=== PATIENT | male | born 1935 | race Caucasian/White ===

== ENCOUNTER 2024-02-29 22:44 | Inpatient (IN) | payer MEDICARE, OTHER, SELFPAY ==
--- NOTE | 2024-02-29 | ECG_ITS ---
Test Reason : FALL / AMS Blood Pressure : / mmHG Vent. Rate : 052 BPM Atrial Rate : 000 BPM P-R Int : 000 ms QRS Dur : 116 ms QT Int : 488 ms P-R-T Axes : 000 034 069 degrees QTc Int : 453 ms Atrial fibrillation with slow ventricular response Incomplete left bundle branch block Abnormal ECG No previous ECGs available Referred By: Generic ED Physician Electronically Signed By:LORRAINE HERNÁNDEZ MD
--- NOTE | ~2024-02-29 | XR_ITS ---
EXAMINATION: XR CHEST CLINICAL INFORMATION: Fall. COMPARISON: None available. TECHNIQUE: Frontal view of the chest was obtained. FINDINGS: The cardiomediastinal silhouette is within normal limits. There is no focal lung consolidation or pleural effusion. There is a moderate hiatal hernia. The bony structures are osteopenic. The soft tissues are unremarkable. XR/XR chest 1V IMPRESSION: No acute cardiopulmonary process.
--- NOTE | ~2024-02-29 | US_ITS ---
EXAMINATION: US VENOUS ULTRASOUND WITH DOPPLER LOWER EXTREMITY, BILATERAL CLINICAL INFORMATION: Evaluate for DVT COMPARISON: None available. TECHNIQUE: Ultrasound of the deep veins is performed from the hip to the calf with compression sonography and color and pulse Doppler assessment. Spectral analysis with color-flow imaging is performed. FINDINGS: RIGHT: There is normal venous compression and respiratory variation and augmented flow. The visualized common femoral vein, superficial femoral vein, profunda femoral vein, popliteal vein, and the trifurcation region shows no evidence of deep venous thrombosis. There is no significant popliteal fossa cyst. Within the right groin is a morphologically benign-appearing though mildly prominent lymph node noted measuring 1.3 cm in short axis soft tissue edema noted along the right lower extremity. LEFT: There is normal venous compression and respiratory variation and augmented flow. The visualized common femoral vein, superficial femoral vein, profunda femoral vein, popliteal vein, and the trifurcation region shows no evidence of deep venous thrombosis. There is no significant popliteal fossa cyst. If the patient's symptoms persist, followup ultrasound in 5 days 7 days might be of value to exclude proximal propagation from a non-visualized calf vein. US/US venous duplex LE BI IMPRESSION: 1. No DVT demonstrated in the bilateral lower extremity. 2. Within the right groin is a morphologically benign-appearing though mildly prominent lymph node measuring 1.3 cm in short axis. Soft tissue edema noted along the right lower extremity.
--- NOTE | ~2024-02-29 | CT_ITS ---
EXAMINATION: CT HEAD WITHOUT CONTRAST CLINICAL INFORMATION: Fall. Patient is on blood thinners. COMPARISON: None available. TECHNIQUE: Contiguous axial imaging was performed from the skull base to vertex without intravenous administration of contrast. This CT examination was performed using dose optimization techniques as appropriate, variously including the following: *Automated exposure control *Adjustment of mA and/or kV according to patient size (this includes techniques or standardized protocols for targeted exams where dose is matched to indication/reason for exam; i.e. extremities or head) *Use of iterative reconstruction technique DLP: 718 mGy-cm FINDINGS: There is cerebral volume loss with prominence of the lateral and the third ventricles. The cortical sulci are widened appropriately. The fourth ventricle and basal cisterns are normally outlined. There is moderate bilateral periventricular and central white matter diminished attenuation. 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 There is also an old lacunar infarct of the left basal ganglia. There is an old left parietal infarct. There is no acute territorial defect, hemorrhage or midline shift. The extra-axial spaces are unremarkable. Calvarium/scalp: Intact. Maxillofacial sinuses and mastoids: Clear as visualized. CT/CT head/brain wo IV con IMPRESSION: 1. No acute intracranial pathology. 2. 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 3. Multiple old infarcts.
[2024-02-29 22:52] VITALS: BP 104/72; BP 155/60; PULSE 51; PULSE 57; RESP 26; TEMP 36.7; O2SAT 94; O2SAT 95; BMI 25.3
[2024-02-29 23:37] LABS: Basophils Absolute Auto 0.1 X10*3/uL (0.0-0.2); Basophils Percent Auto 0.2 % (0-2); Hematocrit 38.6 % (42.0-52.0); Hemoglobin 13.4 g/dl (14.0-18.0); Imm Gran Abs Auto 0.15 X10*3/uL (0.00-0.03); Imm Gran Pct Auto 0.6 % (0.0-0.4); Lymphocytes Absolute Auto 0.3 X10*3/uL (1.2-4.9); Lymphocytes Percent Auto 1.3 % (20-40); MANUAL DIFF FLAG SCAN; Mean Corpuscular HGB Conc 34.7 g/dl (31.0-36.0); Mean Corpuscular Hemoglobin 29.5 pg (27.0-33.0); Mean Platelet Volume 9.1 fL (9.4-12.4); Monocytes Percent Auto 4.1 % (2-11); NRBC Pct Auto 0.1 /100WBC (0.0-0.2); Neutrophils Percent Auto 93.8 % (45-73); Platelet Count 251 X10*3/uL (160-400); Red Blood Count 4.54 X10*6/uL (4.60-5.80); Red Cell Distribution Width 15.5 % (11.0-16.0); SCAN SMEAR FLAG 1; White Blood Count 25.5 X10*3/uL (4.8-10.8)
[2024-02-29 23:46] LABS: INTERNATIONAL NORM RATIO 1.8 (0.9-1.1); Prothrombin Time 22.2 SEC (11.1-13.3)
[2024-02-29 23:48] LABS: Partial Thromboplastin Time 29.6 SEC (26.0-36.8)
[2024-02-29 23:54] LABS: SLIDE REVIEW VERIFIED
[2024-03-01] VITALS (18 sets, daily range): BP systolic 77–117; BP diastolic 48–90; PULSE 54–76; RESP 16–22; TEMP 35.1–36.7; O2SAT 94–99
[2024-03-01] LABS: Alanine Aminotransferase 36 U/L (0-40); Albumin Level 2.7 g/dL (3.5-5.0); Alkaline Phosphatase 91 U/L (39-117); Anion Gap 22 (12-20); Aspartate Amino Transferase 120 U/L (5-37); Bilirubin Direct 0.4 mg/dL (0.0-0.5); Bilirubin Total 0.8 mg/dL (0.0-1.0); Blood Urea Nitrogen 70 mg/dL (9-16); Calcium 8.8 mg/dL (8.4-10.2); Carbon Dioxide 16 mmol/L (22-29); Chloride 101 mmol/L (96-108); Creatinine Clr Calc Pharmacy 17.3; Estimated Glomerular Filt Rate 21; Glucose Random 102 mg/dL (60-115); Potassium 6.5 mmol/L (3.3-5.1); Sodium 132 mmol/L (135-145); Total Protein 6.1 g/dL (6.5-8.0); Troponin-I High Sensitivity 426.6 ng/L (<3.5-35.0)
[2024-03-01 00:01] LABS: Lactic Acid 2.7 mmol/L (0.5-2.0)
[2024-03-01 00:53] LABS: Potassium 6.1 mmol/L (3.3-5.1)
[2024-03-01 01:09] LABS: OBS Int Ctl Valid YES; OBS1 POSITIVE (NEGATIVE)
--- NOTE | 2024-03-01 01:18 | PC.NURSE ---
Daughter Trisha would like to be the primary contact for all cares.
--- NOTE | 2024-03-01 01:19 | ED_ITS ---
HPI - General Adult General Chief complaint: Wound/Laceration Stated complaint: severe bilateral leg cellulitis, ulcers, afib Time Seen by Provider: 03/01/24 00:19 Source: patient, family (Daughter) and EMS Mode of arrival: EMS Limitations: no limitations History of Present Illness ED Provider: DR. Gonzales HPI narrative: 89-year-old male brought in by ambulance for evaluation of multiple concerns by his daughter. This is 89-year-old pleasant male lives home with his mostly independently, daughter noticed that lately he has been falling frequently yesterday patient was found on the ground for about 5 hours and daughter helped him to get up and felt that he did not need to be medically evaluated then, patient was complaining to his daughter that the swelling of right leg is getting worse. Patient with history of atrial fibrillation on Eliquis for anticoagulation, as per daughter known to have bradycardia patient was advised to have pacemaker in the past but was never placed. Patient is hard hearing but able to answer all my questions appropriately in the ED. patient has no complaint No headache, no neck pain. Related Data Allergies Allergy/AdvReac Type Severity Reaction Status Date / Time No Known Allergies Allergy Verified 02/29/24 22:58 Review of Systems 2 Review of Systems: All other systems are reviewed and are negative Constitutional: Reports as per HPI and Reports no additional constitutional complaints Eyes: Reports as per HPI and Reports no additional eye complaints Reports system reviewed and no additional complaints, except as documented Cardiovascular: Reports as per HPI and Reports no additional cardiovascular complaints Respiratory: Reports as per HPI and Reports no additional respiratory complaints Gastrointestinal: Reports as per HPI and Reports no additional gastrointestinal complaints Genitourinary: Reports no additional female genitourinary complaints Musculoskeletal: Reports no additional musculoskeletal complaints Skin/Breast: Reports system reviewed and no additional complaints, except as docu Psychiatric: Reports no additional psychiatric complaints Endocrine: Reports no additional endocrine complaints Hematologic/Lymphatic: Reports no additional hematologic/lymphatic complaints Allergic/Immunologic: Reports no additional allergic/immunologic complaints Reports system reviewed and no additional complaints, except as documented and Reports Abnormal speech present PMFSH Social History Social History Advance Directives: No (pts daughter was unsure and states it may be on file with pts spouse) Advance Directives Information Provided: No Physical Exam ED Vital Signs: Vital Signs - 24 hr 02/29/24 22:52 08/11/24 02:24 Temperature 98.0 F Pulse Rate 57 56 Respiratory Rate 26 H 21 H Blood Pressure 104/72 117/55 L Pulse Oximetry 94 Oxygen Delivery Method Room Air Room Air BMI result Body Mass Index 25.3 Vital signs have been reviewed and appear to be correct. Blood pressure elevated. Heart rate normal. Respiratory rate normal. Temperature normal. Oxygen saturation normal. Appearance: Alert. Oriented X3. No acute distress. Head: Normal external exam. Normocephalic. Small right hematoma to the right side of the forehead, No Trevino signs noted. No raccoon eyes noted Eyes: PERRLA. EOMI. Conjunctiva and sclera normal. Eyelids normal. ENT: TM's Normal. Pharynx normal. Uvula midline. Moist mucous membranes. No trismus noted. No drooling noted. No muffled voice noted. Neck: Normal inspection. Neck supple. FROM. No adenopathy. Thyroid Normal. No meningeal signs. No neck mass noted. CVS: Normal heart rate and rhythm. Heart sound normal. No murmurs noted. Pulses normal throughout. Respiratory: No respiratory distress. Painless inspiration. Breath sounds normal. No wheezes/rales/rhonchi noted. Chest nontender. No accessory muscle usage noted or decreased air movement noted. Abdomen: Soft and nontender. Bowel sounds normal in all 4 quadrants. No distention noted. No organomegaly noted. No visible injury noted. Rectal: Black tarry stool guaiac positive. Back: No CVA tenderness. Full range of motion noted. Skin: Skin warm and dry. Normal skin color. Normal skin turgor. No rashes/lesions/lacerations noted. Extremities: Bilateral lower extremities edema right more than left, creeping serosanguineous on the left side. Redness on hotness on the right side. Neuro: Oriented X 3. Cranial nerve exam: II-XII are grossly intact No motor deficit. No sensory deficit. Reflexes normal. Course Reevaluation(s) Reevaluation #1: 89-year-old male with multiple findings. 1. On Eliquis with right forehead hematoma, GCS 15, head CT is unremarkable for intracranial bleed. 2. As reported by daughter multiple falls, found on the floor yesterday for about 5 hours as mild rhabdomyolysis with APURVA and hyperkalemia with no EKG changes. * IV fluid hydration. * 40 catheter placement with 950 mL urine was drained. * start on sodium bicarb drip, calcium gluconate, insulin/D50 for hyperkalemia. * discussed with renal Dr. Eason. 3. Right lower extremity cellulitis with severe sepsis no septic shock, IV fluids and IV antibiotic. 4. Elevated troponin likely secondary to elevated CPK, repeat troponin has trended down 5. 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 6. Melena, stable H&H. PPI IV. 7. Lactic acidosis is improving with fluids. Time: 01:38 Medications Administered Generic Name Dose Route Start Last Admin Trade Name Freq PRN Reason Stop Dose Admin Sodium Bicarbonate 150 meq/ 1,000 mls @ 100 mls/hr 03/01/24 00:45 03/01/24 01:24 Dextrose IV 100 mls/hr .Q10H MARK Administration Vancomycin HCl 2,000 mg in 500 mls @ 250 mls/hr 03/01/24 01:15 03/01/24 02:17 Vancomycin/Ns IV 03/01/24 03:14 250 mls/hr ONCE ONE Administration Discontinued Medications Generic Name Dose Route Start Last Admin Trade Name Freq PRN Reason Stop Dose Admin Sodium Chloride 1,000 mls @ 999 mls/hr 03/01/24 00:31 03/01/24 01:39 Ns IV 03/01/24 01:31 999 mls/hr .Q1H1M ONE Administration Calcium Gluconate 2 gm in 100 mls @ 50 mls/hr 03/01/24 00:31 03/01/24 01:25 Calcium Gluconate IV 03/01/24 02:30 50 mls/hr ONCE ONE Administration Dextrose 250 mls @ 750 mls/hr 03/01/24 00:58 03/01/24 01:52 D10 IV 03/01/24 01:17 Infused Q15M ONE Infusion Vancomycin HCl 1,500 mg/ 500 mls @ 333.333 mls/hr 03/01/24 01:00 03/01/24 01:37 Sodium Chloride IV 03/01/24 02:29 Not Given ONCE ONE Insulin Human Regular 5 unit 03/01/24 00:34 03/01/24 01:33 Insulin Regular, Human 100 Unit/Ml 10 Ml Vial IVPUSH 03/01/24 00:35 5 unit ONCE ONE Administration Pantoprazole Sodium 40 mg 03/01/24 01:37 03/01/24 02:13 Pantoprazole Sodium 40 Mg/10 Ml Vial IVPUSH 03/01/24 01:38 40 mg ONCE ONE Administration Medical Decision Making Differential Diagnosis Differential Diagnoses: The differential diagnosis associated with the presentation includes (Rhabdomyolysis, hyperkalemia, APURVA, electrolyte derangement, sepsis, GI bleed, severe anemia, ACS, closed head injury, cervical spine injury, cellulitis of right lower extremity.) Admission/Observation Consideration of admission/observation: Escalation of care including admission/observation considered Consult Healthcare Provider Management of the patient was discussed with: Hospitalist (Dr. Thompson) and [facility] Splitter (Dr. Fernando) Lab Data MDM Lab Attestation statement: I reviewed the patient's lab results. 02/29/24 23:27 03/01/24 02:39 Labs: Lab Results 02/29/24 03/01/24 03/01/24 Range/Units 23:27 00:29 01:06 WBC 25.5 H (4.8-10.8) X10*3/uL RBC 4.54 L (4.60-5.80) X10*6/uL Hgb 13.4 L (14.0-18.0) g/dl Hct 38.6 L (42.0-52.0) % MCV 85.0 (80.0-98.0) fL MCH 29.5 (27.0-33.0) pg MCHC 34.7 (31.0-36.0) g/dl RDW 15.5 (11.0-16.0) % Plt Count 251 (160-400) X10*3/uL MPV 9.1 L (9.4-12.4) fL Immature Gran % (Auto) 0.6 H (0.0-0.4) % Neut % (Auto) 93.8 H (45-73) % Lymph % (Auto) 1.3 L (20-40) % [place] % (Auto) 4.1 (2-11) % Eos % (Auto) 0.0 (0-4) % Baso % (Auto) 0.2 (0-2) % Lymph # (Auto) 0.3 L (1.2-4.9) X10*3/uL [place] # (Auto) 1.0 (0.1-1.2) X10*3/uL Eos # (Auto) 0.0 (0.0-0.4) X10*3/uL Baso # (Auto) 0.1 (0.0-0.2) X10*3/uL Abs Immat Gran (auto) 0.15 H (0.00-0.03) X10*3/uL Absolute Neuts (auto) 24.0 H (2.0-8.3) x10*3/uL Absolute Nucleated RBC 0.020 H (0.0-0.012) X10*3/uL Nucleated RBC % (auto) 0.1 (0.0-0.2) /100WBC Smear Tech's Comments VERIFIED PT 22.2 H (11.1-13.3) SEC INR 1.8 H (0.9-1.1) APTT 29.6 (26.0-36.8) SEC Sodium 132 L (135-145) mmol/L Potassium 6.5 H* 6.1 H* (3.3-5.1) mmol/L Chloride 101 (96-108) mmol/L Carbon Dioxide 16 L (22-29) mmol/L Anion Gap 22 H (12-20) BUN 70 H (9-16) mg/dL Creatinine 2.88 H (0.5-1.4) mg/dL Estim Creat Clear Calc 17.3 Estimated GFR 21 POC Glucose (60-115) mg/dL Random Glucose 102 (60-115) mg/dL Lactic Acid 2.7 H* (0.5-2.0) mmol/L Lactic Acid F/U @ 2Hr (0.5-2.0) mmol/L Calcium 8.8 (8.4-10.2) mg/dL Magnesium (1.6-2.6) mg/dL Total Bilirubin 0.8 (0.0-1.0) mg/dL Direct Bilirubin 0.4 (0.0-0.5) mg/dL AST 120 H (5-37) U/L ALT 36 (0-40) U/L Alkaline Phosphatase 91 (39-117) U/L Total Creatine Kinase 2029 H (38-174) U/L Troponin I High Sens 426.6 H* (<3.5-35.0) ng/L Total Protein 6.1 L (6.5-8.0) g/dL Albumin 2.7 L (3.5-5.0) g/dL Urine Color Urine Appearance Urine pH (5.0-9.0) Ur Specific [place] (1.005-1.025) Urine Protein (Neg-Trace) mg/dL Urine Glucose (UA) (Negative) mg/dL Urine Ketones (Negative) mg/dL Urine Blood (Negative) Urine Nitrite (Negative) Ur Leukocyte Esterase (Negative) Urine RBC (0-2) /HPF Urine WBC (0-5) /HPF Ur Squamous Epith Cells (0-2) /HPF Urine Bacteria (None Seen) Hyaline Casts (0-2) /LPF Stool Occult Blood POSITIVE (NEGATIVE) 03/01/24 03/01/24 03/01/24 Range/Units 01:31 02:08 02:39 WBC (4.8-10.8) X10*3/uL RBC (4.60-5.80) X10*6/uL Hgb (14.0-18.0) g/dl Hct (42.0-52.0) % MCV (80.0-98.0) fL MCH (27.0-33.0) pg MCHC (31.0-36.0) g/dl RDW (11.0-16.0) % Plt Count (160-400) X10*3/uL MPV (9.4-12.4) fL Immature Gran % (Auto) (0.0-0.4) % Neut % (Auto) (45-73) % Lymph % (Auto) (20-40) % [place] % (Auto) (2-11) % Eos % (Auto) (0-4) % Baso % (Auto) (0-2) % Lymph # (Auto) (1.2-4.9) X10*3/uL [place] # (Auto) (0.1-1.2) X10*3/uL Eos # (Auto) (0.0-0.4) X10*3/uL Baso # (Auto) (0.0-0.2) X10*3/uL Abs Immat Gran (auto) (0.00-0.03) X10*3/uL Absolute Neuts (auto) (2.0-8.3) x10*3/uL Absolute Nucleated RBC (0.0-0.012) X10*3/uL Nucleated RBC % (auto) (0.0-0.2) /100WBC Smear Tech's Comments PT (11.1-13.3) SEC INR (0.9-1.1) APTT (26.0-36.8) SEC Sodium 134 L (135-145) mmol/L Potassium 6.1 H* (3.3-5.1) mmol/L Chloride 103 (96-108) mmol/L Carbon Dioxide 19 L (22-29) mmol/L Anion Gap 18 (12-20) BUN 75 H (9-16) mg/dL Creatinine 2.62 H (0.5-1.4) mg/dL Estim Creat Clear Calc 19.1 Estimated GFR 23 POC Glucose 83 (60-115) mg/dL Random Glucose 76 (60-115) mg/dL Lactic Acid (0.5-2.0) mmol/L Lactic Acid F/U @ 2Hr 2.2 H* (0.5-2.0) mmol/L Calcium 8.7 (8.4-10.2) mg/dL Magnesium 2.3 (1.6-2.6) mg/dL Total Bilirubin (0.0-1.0) mg/dL Direct Bilirubin (0.0-0.5) mg/dL AST (5-37) U/L ALT (0-40) U/L Alkaline Phosphatase (39-117) U/L Total Creatine Kinase (38-174) U/L Troponin I High Sens 288.7 H* (<3.5-35.0) ng/L Total Protein (6.5-8.0) g/dL Albumin (3.5-5.0) g/dL Urine Color Yellow Urine Appearance Clear Urine pH 5.0 (5.0-9.0) Ur Specific [place] 1.010 (1.005-1.025) Urine Protein Trace (Neg-Trace) mg/dL Urine Glucose (UA) Negative (Negative) mg/dL Urine Ketones Negative (Negative) mg/dL Urine Blood Large (3+) H (Negative) Urine Nitrite Negative (Negative) Ur Leukocyte Esterase Negative (Negative) Urine RBC 11-20 H (0-2) /HPF Urine WBC 0-5 (0-5) /HPF Ur Squamous Epith Cells 0-2 (0-2) /HPF Urine Bacteria None Seen (None Seen) Hyaline Casts 3-5 (0-2) /LPF Stool Occult Blood (NEGATIVE) Independent Interpretation I performed an independent interpretation of an: Plain X-Ray (Chest:) and CT Scan (Head:) Radiology Impression Discussion of test interpretation with radiology: I have reviewed the radiologist's reading. Critical Care Time Critical Care Time Critical Care Time: Yes Total Critical Care Time: 60 Attestation: The patient was critically ill with a high probability of imminent or life- threatening deterioration. I spent greater than 30 minutes of discontinuous time evaluating the patient, delivering critical care at the bedside, discussing evaluating data with consultants. Critical care time does not include time spent performing separately billable procedures or teaching. Time spent performing critical care was 60 minutes. Discharge Plan Discharge Clinical Impression: Acute hyperkalemia, APURVA (acute kidney injury), Rhabdomyolysis, Melena, Elevated troponin, Cellulitis of right leg, Closed head injury, Acidosis, lactic Patient Disposition: Admitted As Inpatient Print Language: Taiwanese
[2024-03-01] MEDS: Sodium Bicarbonate 8.4% 150 MEQ in Dextrose 5 % 850 ML 100 MEQ IV ×2 (01:24→12:00)
[2024-03-01] MEDS: Calcium Gluconate/NaCl,Iso-Osm 2 GM/100 ML PLAST..BAG IV (01:25)
[2024-03-01] MEDS: Dextrose 10 % 250 ML 750 ML IV (01:32)
[2024-03-01 01:33] LABS: Reflex Lactate? Lactic Acid Added
[2024-03-01] MEDS: Insulin Regular, Human 100 UNIT/ML 10 ML VIAL IVPUSH (01:33)
[2024-03-01] MEDS: 0.9 % Sodium Chloride 1,000 ML 999 ML IV (01:39)
[2024-03-01 01:45] LABS: Glucose, Whole Blood 83 mg/dL (60-115)
[2024-03-01] MEDS: Pantoprazole Sodium 40 MG/10 ML VIAL IVPUSH ×2 (02:13→17:43)
[2024-03-01] MEDS: vancomycin/NS 2,000 MG/500 ML PLAST..BAG 250 MG IV (02:17)
[2024-03-01 02:33] LABS: Appearance Urine Clear; Color Urine Yellow; Glucose Urine UA Negative (Negative); Leukocyte Esterase Urine Negative (Negative); Nitrite Urine Negative (Negative); UMIC TRIGGER UACC YES; Urine Blood Large (3+) (Negative); Urine Ketones Negative (Negative); Urine Protein Trace mg/dL (Neg-Trace)
[2024-03-01 02:34] LABS: ~Lactic Acid-LAB USE ONLY 2.2 mmol/L (0.5-2.0)
[2024-03-01 02:39] LABS: Troponin-I High Sensitivity 288.7 ng/L (<3.5-35.0)
[2024-03-01 02:59] LABS: Bacteria Urine None Seen (None Seen); Squamous Epithelial Cell Urine 0-2 /HPF (0-2); WBC Urine 0-5 /HPF (0-5)
[2024-03-01 03:03] LABS: Anion Gap 18 (12-20); Blood Urea Nitrogen 75 mg/dL (9-16); Calcium 8.7 mg/dL (8.4-10.2); Carbon Dioxide 19 mmol/L (22-29); Chloride 103 mmol/L (96-108); Creatinine Clr Calc Pharmacy 19.1; Estimated Glomerular Filt Rate 23; Glucose Random 76 mg/dL (60-115); Magnesium 2.3 mg/dL (1.6-2.6); Potassium 6.1 mmol/L (3.3-5.1); Sodium 134 mmol/L (135-145)
[2024-03-01 04:12] LABS: Reflex Lactate? 2 Y
[2024-03-01 05:01] LABS: Glucose, Whole Blood 91 mg/dL (60-115)
[2024-03-01 05:25] LABS: ~Lactic Acid-LAB USE ONLY 2.2 mmol/L (0.5-2.0)
--- NOTE | 2024-03-01 06:55 | PC.NURSE ---
Handoff report to Dulce BOOGIE.
[2024-03-01 08:53] LABS: Hematocrit 35.5 % (42.0-52.0); Hemoglobin 12.1 g/dl (14.0-18.0); Mean Corpuscular HGB Conc 34.1 g/dl (31.0-36.0); Mean Corpuscular Hemoglobin 29.6 pg (27.0-33.0); Mean Corpuscular Volume 86.8 fL (80.0-98.0); Mean Platelet Volume 9.1 fL (9.4-12.4); Platelet Count 197 X10*3/uL (160-400); Red Blood Count 4.09 X10*6/uL (4.60-5.80); Red Cell Distribution Width 15.5 % (11.0-16.0); White Blood Count 21.7 X10*3/uL (4.8-10.8)
[2024-03-01 09:09] LABS: Anion Gap 17 (12-20); Blood Urea Nitrogen 73 mg/dL (9-16); Calcium 8.2 mg/dL (8.4-10.2); Carbon Dioxide 21 mmol/L (22-29); Chloride 103 mmol/L (96-108); Creatinine Clr Calc Pharmacy 20.8; Estimated Glomerular Filt Rate 26; Glucose Random 80 mg/dL (60-115); Sodium 136 mmol/L (135-145)
--- NOTE | 2024-03-01 09:17 | PM.EVENT ---
Event Note Date of Service: 03/01/24 Event Note: Patient not seen but case discussed with ER MD. APURVA due to tubular injury. UO Ok. Given IV NaHCO3. K better. Serum creatinine marginally better. No indication for renal replacement.Continue current supportive care for now. Shall see and follow up AM
--- NOTE | 2024-03-01 09:17 | PC.NURSE ---
patient sleeping. awakens to verbal stimuli. states his name, not oriented to place or situation. denies pain. skin pale, cool, dry. rectal temp 95.2, steve hollingsworth initiated and hospitalist aware. afib via tele. continues on bicarb drip per order. h[place]josa patent and draining clear, yellow urine. superficial wound to coccyx with surrounding erythema. wound cleansed and dressing in place. right lower extremity swollen w/ erythema. wound to tip of left great toe with eschar present, wound also noted to base of left foot third toe. areas cleansed. hospitalist has seen patient.
--- NOTE | 2024-03-01 09:22 | PM.IMHP ---
History of Present Illness Date of Service: 03/01/24 Chief Complaint: found down 89yo M who lives alone but whose daughter checks on him every day and has a history of CKD [SCr 1.2 01/01/24], chronic AF for which he takes apixaban, HTN, HLD, PVD, and lymphedema. He was recently admitted to [facility] in early December for cellulitis. He was brought in overnight by ambulance at the request of his daughter due to her having found him down on the ground after falling for the past 2 days. Yesterday, he was probably on the ground for about 4-5 hours. He has had worsening swelling and redness of the right leg below the knee. No fever or anorexia. No chest pain, dyspnea, or abdominal pain. He is alert and oriented and denies any concerns, but is hard of hearing. In the ED, he was found to have severe sepsis with WBC of 25.5, RR 26, and lactate 2.7. He also had APURVA with SCr 2.88 and hyperK with level of 6.5. CPK was 2028. He had a large melanotic stool that tested positive for guaiac. He was given IV insulin, bicarbonate, NS, vancomycin, and pantoprazole. Currently SCr is 2.4 and K 5.0. EKG showed AF with iLBBB, QRS 116 ms. [place] placed with return of 950 mL urine. Review of Systems Review of Systems: Yes all other systems are reviewed and are negative [facility] Medical History (Updated 03/01/24 @ 09:33 by Sebastian Martin MD) Peripheral vascular disease Hyperlipidemia Hypertension Lymphedema Atrial fibrillation Chronic kidney disease Social History Advance Directives: No (pts daughter was unsure and states it may be on file with pts spouse) Advance Directives Information Provided: No Meds Allergies Allergy/AdvReac Type Severity Reaction Status Date / Time No Known Allergies Allergy Verified 02/29/24 22:58 Active Medications: Current Medications Sodium Bicarbonate 150 meq/ (Dextrose) 1,000 mls @ 100 mls/hr IV .Q10H MARK Last Admin: 03/01/24 01:24 Dose: 100 mls/hr Ceftriaxone Sodium 1 gm/ (Sodium Chloride) 50 mls @ 100 mls/hr IV Q24H MARK Pantoprazole Sodium (Pantoprazole Sodium 40 Mg/10 Ml Vial) 40 mg IVPUSH BID@8007,8786 [facility] Pharmacy Consult (Consult Rx Vancomycin Dosing) 1 each MISCELLANE DAILY PRN PRN Reason: Consult order Physical Exam Vital Signs and Narrative: Vital Signs: Last Vital Signs Temp 95.2 F L 03/01/24 09:13 Pulse 65 03/01/24 09:13 Resp 18 03/01/24 09:13 BP 94/58 L 03/01/24 09:13 Pulse Ox 99 03/01/24 09:13 O2 Del Method Room Air 03/01/24 09:13 BMI result Body Mass Index 25.3 Gen: in no acute distress though currently hypothermic at 95.2 rectal HEENT: sclera anicteric, edentulous, dry mucus membranes Neck: supple Lungs: clear bilaterally Heart: irregular, slow around 60, no murmurs Abd: soft, non-tender, non-distended Ext: RLE swelling Skin: bright-red erythema of RLE from knee down without any purulence, skin breakdown on buttocks Neuro: alert and oriented to self/place, moving all extremities Psych: appropriate affect Results Labs 03/01/24 08:48 03/01/24 08:48 Labs: Laboratory Results - last 24 hr 02/29/24 03/01/24 03/01/24 23:27 00:29 01:06 MCV 85.0 MCH 29.5 MCHC 34.7 RDW 15.5 Plt Count 251 MPV 9.1 L Immature Gran % (Auto) 0.6 H Neut % (Auto) 93.8 H Lymph % (Auto) 1.3 L [place] % (Auto) 4.1 Eos % (Auto) 0.0 Baso % (Auto) 0.2 Lymph # (Auto) 0.3 L [place] # (Auto) 1.0 Eos # (Auto) 0.0 Baso # (Auto) 0.1 Abs Immat Gran (auto) 0.15 H Absolute Neuts (auto) 24.0 H Absolute Nucleated RBC 0.020 H Nucleated RBC % (auto) 0.1 Smear Tech's Comments VERIFIED PT 22.2 H INR 1.8 H APTT 29.6 Anion Gap 22 H Estim Creat Clear Calc 17.3 Estimated GFR 21 POC Glucose Random Glucose 102 Lactic Acid 2.7 H* Lactic Acid F/U @ 2Hr Lactic Acid F/U @ 4Hr Calcium 8.8 Magnesium Total Bilirubin 0.8 Direct Bilirubin 0.4 AST 120 H ALT 36 Alkaline Phosphatase 91 Total Creatine Kinase 2029 H Troponin I High Sens 426.6 H* Total Protein 6.1 L Albumin 2.7 L Urine Color Urine Appearance Urine pH Ur Specific [place] Urine Protein Urine Glucose (UA) Urine Ketones Urine Blood Urine Nitrite Ur Leukocyte Esterase Urine RBC Urine WBC Ur Squamous Epith Cells Urine Bacteria Hyaline Casts Stool Occult Blood POSITIVE 03/01/24 03/01/24 03/01/24 01:31 02:08 02:39 MCV MCH MCHC RDW Plt Count MPV Immature Gran % (Auto) Neut % (Auto) Lymph % (Auto) [place] % (Auto) Eos % (Auto) Baso % (Auto) Lymph # (Auto) [place] # (Auto) Eos # (Auto) Baso # (Auto) Abs Immat Gran (auto) Absolute Neuts (auto) Absolute Nucleated RBC Nucleated RBC % (auto) Smear Tech's Comments PT INR APTT Anion Gap 18 Estim Creat Clear Calc 19.1 Estimated GFR 23 POC Glucose 83 Random Glucose 76 Lactic Acid Lactic Acid F/U @ 2Hr 2.2 H* Lactic Acid F/U @ 4Hr Calcium 8.7 Magnesium 2.3 Total Bilirubin Direct Bilirubin AST ALT Alkaline Phosphatase Total Creatine Kinase Troponin I High Sens 288.7 H* Total Protein Albumin Urine Color Yellow Urine Appearance Clear Urine pH 5.0 Ur Specific [place] 1.010 Urine Protein Trace Urine Glucose (UA) Negative Urine Ketones Negative Urine Blood Large (3+) H Urine Nitrite Negative Ur Leukocyte Esterase Negative Urine RBC 11-20 H Urine WBC 0-5 Ur Squamous Epith Cells 0-2 Urine Bacteria None Seen Hyaline Casts 3-5 Stool Occult Blood 03/01/24 03/01/24 03/01/24 04:58 05:09 08:48 MCV 86.8 MCH 29.6 MCHC 34.1 RDW 15.5 Plt Count 197 MPV 9.1 L Immature Gran % (Auto) Neut % (Auto) Lymph % (Auto) [place] % (Auto) Eos % (Auto) Baso % (Auto) Lymph # (Auto) [place] # (Auto) Eos # (Auto) Baso # (Auto) Abs Immat Gran (auto) Absolute Neuts (auto) Absolute Nucleated RBC 0.000 Nucleated RBC % (auto) 0.0 Smear Tech's Comments PT INR APTT Anion Gap 17 Estim Creat Clear Calc 20.8 Estimated GFR 26 POC Glucose 91 Random Glucose 80 Lactic Acid Lactic Acid F/U @ 2Hr Lactic Acid F/U @ 4Hr 2.2 H* Calcium 8.2 L Magnesium Total Bilirubin Direct Bilirubin AST ALT Alkaline Phosphatase Total Creatine Kinase 991 H Troponin I High Sens Total Protein Albumin Urine Color Urine Appearance Urine pH Ur Specific [place] Urine Protein Urine Glucose (UA) Urine Ketones Urine Blood Urine Nitrite Ur Leukocyte Esterase Urine RBC Urine WBC Ur Squamous Epith Cells Urine Bacteria Hyaline Casts Stool Occult Blood Imaging Radiologist's Impressions: Impressions Chest X-Ray 03/01/24 02:04 IMPRESSION: No acute cardiopulmonary process. Head CT 03/01/24 02:16 IMPRESSION: 1. No acute intracranial pathology. 2. 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 3. Multiple old infarcts. Assessment and Plan (1) Acidosis, lactic: Status: Acute (2) Cellulitis of right leg: Status: Acute Plan 89yo M with CKD, AF on apixaban, HTN, HLD, PVD, and lymphedema with recent admission to [facility] for cellulitis. He was sent in by EMS for repeated falls with estimated time on the ground of 4-5 hr and is found to have severe sepsis from cellulitis, APURVA, hyperK, rhabdomyolysis, and melena. severe sepsis due to RLE cellulitis - admit to telemetry; given vancomycin in ED and continue with Pharmacy consult for PK; add ceftriaxone; follow BCx; US Duplex to r/o DVT hyperK - resolved; hold PO KCl supplementation that pt was on at home APURVA - prerenal; continue IV bicarbonate and hold diuretics [on torsemide at home]; Nephrology consult mild rhabdomyolysis - IV bicarbonate as above; troponin + LFT elevations due to rhabdomyolysis melena, FOBT+ stool - hold Eliquis, monitor H+H, IV PPI, GI consult sacral wounds - Wound Care consult AF - not on any rate control agents; hold Eliquis as above VTE ppx - SCDs, hold Eliquis due to melena code - DNR/DNI per daughter dispo - will certainly require STR I anticipate that the patient will stay at least 2 midnights as an inpatient in the hospital due to the above reasons. It is neither reasonable nor safe to care for them in a less acute setting. Total time managing care of this patient today: 75 minutes. Quality Stroke Does the patient have a stroke diagnosis?: No VTE Prior VTE?: No VTE Risk Level:: Medical - moderate - high VTE Device Contraindication: N/A - Device Ordered VTE Drug Contraindication: Treatment Not Indicated
[2024-03-01] MEDS: cefTRIAXone sodium 1 GM in 0.9 % Sodium Chloride 50 ML IV (09:26)
--- NOTE | 2024-03-01 09:41 | PM.GICN ---
History of Present Illness Data of Consult Service Date: 03/01/24 Requesting physician: Sebastian Martin Primary Care Provider: Terrence Snider MD HPI Reason for consult: melena 89yo M w/ h/o CKD, a-fib on apixiban, HTN, HLD, PVD, and lymphedema who is being seen for assessment for melena No history from patient, obtunded-info from notes and nurse Patient was found down at home maybe for 4-5 hours, with swollen right leg. he had denied fever or anorexia,chest pain, dyspnea, or abdominal pain per admission note. He had physical exam with melena noted on rectal exam. He also had urine retention with 950 ml noted on hinojosa placement. When I came to see him bear hugger was being placed due to hypothermia, also he was hypotensive, per RN she had cleaned him and no melena or rectal bleeding noted, Some oozing from legs. Labs: WBC of 25.5, RR 26, and lactate 2.7. He also had APURVA with SCr 2.88 and hyperK with level of 6.5. CPK was 2029. Review of Systems Review of Systems: Yes Unobtainable due to mental condition and Unobtainable due to mental status PMFSH Past Medical History Medical History (Updated 03/01/24 @ 09:33 by Sebastian Martin MD) Peripheral vascular disease Hyperlipidemia Hypertension Lymphedema Atrial fibrillation Chronic kidney disease Family History Pertinent family history: unable to obtain Social History Social History Advance Directives: No (pts daughter was unsure and states it may be on file with pts spouse) Advance Directives Information Provided: No Meds Allergies Allergy/AdvReac Type Severity Reaction Status Date / Time No Known Allergies Allergy Verified 02/29/24 22:58 Active Medications: Current Medications Acetaminophen (Acetaminophen 325 Mg Tablet) 650 mg PO Q6H PRN PRN Reason: Pain, Mild (Pain Scale 1-3), fever or headache Sodium Bicarbonate 150 meq/ (Dextrose) 1,000 mls @ 100 mls/hr IV .Q10H MARK Last Admin: 03/01/24 01:24 Dose: 100 mls/hr Ceftriaxone Sodium 1 gm/ (Sodium Chloride) 50 mls @ 100 mls/hr IV Q24H MARK Last Admin: 03/01/24 09:26 Dose: 100 mls/hr Magnesium Hydroxide (Milk Of Magnesia 30 Ml Oral.Susp) 30 ml PO DAILY PRN PRN Reason: Constipation Melatonin (Melatonin 3 Mg Tablet) 6 mg PO BEDTIME PRN PRN Reason: Insomnia Ondansetron HCl (Ondansetron Hcl 4 Mg/2 Ml Vial) 4 mg IVPUSH Q8H PRN PRN Reason: Nausea and Vomiting Pantoprazole Sodium (Pantoprazole Sodium 40 Mg/10 Ml Vial) 40 mg IVPUSH BID@0630,1630 [facility] Pharmacy Consult (Consult Rx Vancomycin Dosing) 1 each MISCELLANE DAILY PRN PRN Reason: Consult order Polyethylene Glycol (Polyethylene Glycol 3350 17 Gm Powd.Pack) 17 gm PO DAILY PRN PRN Reason: Constipation Sodium Chloride (0.9 % Sodium Chloride Flush 3 Ml Syringe) 3 ml IVFLUSH QSHIFT [facility] Home Medications ?Medication ?Instructions ?Recorded ?Confirmed ?Last Taken ?Type apixaban 5 mg tablet (Eliquis) 5 mg PO BID 03/01/24 03/01/24 02/28/24 History potassium chloride 20 mEq 40 meq PO DAILY 03/01/24 03/01/24 02/28/24 History tablet,extended release torsemide 20 mg tablet 20 mg PO BID 03/01/24 03/01/24 02/28/24 History Physical Exam Vital Signs: Vital Signs: Last Vital Signs Temp 95.4 F L 03/01/24 09:33 Pulse 71 03/01/24 09:33 Resp 18 03/01/24 09:33 BP 105/48 L 03/01/24 09:33 Pulse Ox 99 03/01/24 09:33 O2 Del Method Room Air 03/01/24 09:33 BMI result Body Mass Index 25.3 EXAM: GENERAL: The patient is obtunded, frail, bear hugger on VITAL SIGNS:see workflow HEENT: Nonicteric sclerae, PERRLA, EOMI. Oropharynx clear. Moist mucous membranes. Conjunctivae appear well perfused. No thyroid mass. CHEST: Chest wall is nontender. HEART: irregular rate and rhythm without murmurs. LUNGS: Clear to auscultation bilaterally. ABDOMEN: Soft, positive bowel sounds, nontender, no organomegaly.no flank tenderness SKIN: swollen legs, r>L with some wounds and escar noted, and erythema NEUROLOGIC: obtunded, breathing spontaneously Psych: obtunded Results Labs 03/01/24 08:48 03/01/24 08:48 Labs: Short CBC 02/29/24 03/01/24 Range/Units 23:27 08:48 WBC 25.5 H 21.7 H (4.8-10.8) X10*3/uL Hgb 13.4 L 12.1 L (14.0-18.0) g/dl Hct 38.6 L 35.5 L (42.0-52.0) % Plt Count 251 197 (160-400) X10*3/uL BMP 02/29/24 03/01/24 03/01/24 23:27 00:29 02:39 Sodium 132 L 134 L Potassium 6.5 H* 6.1 H* 6.1 H* Chloride 101 103 Carbon Dioxide 16 L 19 L BUN 70 H 75 H Creatinine 2.88 H 2.62 H Calcium 8.8 8.7 03/01/24 08:48 Sodium 136 Potassium 5.0 Chloride 103 Carbon Dioxide 21 L BUN 73 H Creatinine 2.40 H Calcium 8.2 L Cardiac Enzymes 03/01/24 03/01/24 Range/Units 00:29 08:48 Total Creatine Kinase 2029 H 991 H (38-174) U/L Liver Function 02/29/24 Range/Units 23:27 Total Bilirubin 0.8 (0.0-1.0) mg/dL Direct Bilirubin 0.4 (0.0-0.5) mg/dL AST 120 H (5-37) U/L ALT 36 (0-40) U/L Alkaline Phosphatase 91 (39-117) U/L Albumin 2.7 L (3.5-5.0) g/dL Urine 03/01/24 Range/Units 02:08 Urine Color Yellow Urine Appearance Clear Urine pH 5.0 (5.0-9.0) Ur Specific [place] 1.010 (1.005-1.025) Urine Protein Trace (Neg-Trace) mg/dL Urine Glucose (UA) Negative (Negative) mg/dL Imaging CT scan - head: Attestation: I personally reviewed and interpreted this imaging study as follows: (old infarcts, microangiopathy) Assessment and Plan (1) Melena: Status: Acute Plan 1/ Melena on exam whilst on eliquis with APURVA most likely mucosal bleed also with possible septic shock from cellultiis, PLAN: 1/ Hold on endoscopies at this time, 2/ if HGB going down then kcentra, transfuse for HGb 9-10 g/dl 3/ antibiotics as doing 4/ supportive care Procedures Date of Service Date of Service: 03/01/24
--- NOTE | 2024-03-01 10:10 | PHA.PROG ---
Admission Date/Time: March 01, 2024 09:20 Indication: skin Weight in k.8 kg Adjusted body weight in Kg: [place] body weight in Kg: Obesity Dosing Indication % IBW: Serum Creatinine - Last 168 Hours 02/29/24 03/01/24 03/01/24 23:27 02:39 08:48 Creatinine 2.88 H 2.62 H 2.40 H Estimated CrCl and GFR - Last 168 Hours 02/29/24 03/01/24 03/01/24 23:27 02:39 08:48 Estim Creat Clear Calc 17.3 19.1 20.8 Estimated GFR 21 23 26 Vancomycin Loading Dose:2000mg Current Vancomycin Dosing Regimen: 500mg Q24H Vancomycin Monitoring using AUC goal of 400 - 600 range with trough as surrogate marker: 422mg/L Date and Time for next Vancomycin Level to be drawn: 03/03/24 @0600 Pharmacist Comments on Vancomycin Plan: pateint has poor renal function; predicted trough of 15mg/L. If creatinine improves may need to increase dose or frequency Vancomycin dosing will take advantage of [employer] as a clinical decision support tool that uses Bayesian modeling to calculate individual patient's pharmacokinetic parameters and forecast the patient's drug concentration time course with the target goal AUC 24 range of 400 - 600 mg/L/hr.
--- NOTE | 2024-03-01 10:51 | PC.NURSE ---
hospitalist aware of blood pressures. new orders obtained for IV fluids. patient is sleeping but awakens to verbal stimuli, is now telling me that he is at [place] and that he is here because he fell.
[2024-03-01] MEDS: 0.9 % Sodium Chloride 2,334 ML 2334 ML IV (10:55)
--- NOTE | 2024-03-01 11:08 | PHA.MEDREC ---
Addendum entered by Liset Brown RPh 03/01/24 12:23: MED REC DONE BY [employer], REVIEWED BY [facility] Original Note: Pharmacy Consult ? Medication Reconciliation Pharmacy has completed the medication reconciliation. Called Trisha to confirm meds.
[2024-03-01 11:43] LABS: MRSA Nasal PCR NEGATIVE (Negative); SA Nasal PCR NEGATIVE (Negative)
--- NOTE | 2024-03-01 16:19 | HO.SKINPHOTO ---
Location: Category: Stage: Length: Width: Depth: cm Location: Category: Stage: Length: Width: Depth: cm Location: Category: Stage: Length: Width: Depth: cm Location: Category: Stage: Length: Width: Depth: cm Location: Category: Stage: Length: Width: Depth: cm Location: Category: Stage: Length: Width: Depth: cm LLE Right foot RLE sacrum
[2024-03-01 16:55] LABS: Anion Gap 18 (12-20); Blood Urea Nitrogen 65 mg/dL (9-16); Calcium 7.6 mg/dL (8.4-10.2); Carbon Dioxide 19 mmol/L (22-29); Chloride 107 mmol/L (96-108); Creatinine Clr Calc Pharmacy 23.7; Estimated Glomerular Filt Rate 30; Glucose Random 80 mg/dL (60-115); Potassium 4.5 mmol/L (3.3-5.1); Sodium 139 mmol/L (135-145)
[2024-03-02] MEDS: Sodium Bicarbonate 8.4% 150 MEQ in Dextrose 5 % 850 ML 100 MEQ IV (02:42)
[2024-03-02 03:12] VITALS: BP 103/73; PULSE 74; RESP 20; TEMP 36.2; O2SAT 97
[2024-03-02] MEDS: Pantoprazole Sodium 40 MG/10 ML VIAL IVPUSH ×2 (05:55→17:19)
[2024-03-02 07:38] LABS: Hematocrit 32.6 % (42.0-52.0); Mean Corpuscular HGB Conc 33.7 g/dl (31.0-36.0); Mean Corpuscular Hemoglobin 30.1 pg (27.0-33.0); Mean Corpuscular Volume 89.1 fL (80.0-98.0); Mean Platelet Volume 9.4 fL (9.4-12.4); Platelet Count 184 X10*3/uL (160-400); Red Blood Count 3.66 X10*6/uL (4.60-5.80); Red Cell Distribution Width 15.5 % (11.0-16.0)
[2024-03-02 08:00] VITALS: BP 116/75; PULSE 60; RESP 16; TEMP 36.3; O2SAT 97
[2024-03-02 08:10] LABS: Anion Gap 11 (12-20); Blood Urea Nitrogen 59 mg/dL (9-16); Calcium 7.4 mg/dL (8.4-10.2); Carbon Dioxide 29 mmol/L (22-29); Chloride 106 mmol/L (96-108); Creatinine Clr Calc Pharmacy 27.5; Estimated Glomerular Filt Rate 35; Glucose Random 96 mg/dL (60-115); Potassium 4.1 mmol/L (3.3-5.1); Sodium 142 mmol/L (135-145)
[2024-03-02] MEDS: vancomycin HCL 500 MG in 0.9 % Sodium Chloride 100 ML 110 MG IV (08:24)
[2024-03-02] MEDS: 0.9 % Sodium Chloride 1,000 ML 100 ML IVCONT (08:24)
--- NOTE | 2024-03-02 08:59 | MHC.CM.PN ---
IMM 03/02/24, EMR REVIEWED PT ADMITTED W/HYPERKALEMIA/APURVA/CELLULITIS/MELENA, CM MET W/PT WHO REPORTS HE LIVES ALONE, HAS A CANE AND FWW AT HOME BUT DOES NOT USE ALL OF THE TIME, PT DECNIES HAVING HOME SERVICES, PT'S GOAL FOR DC IS HOME. PT VERIFIES PCP IS DR. ANGULO AND PT UNSURE IF HE HAS A HCP, PT GIVES VERBAL PERMISSION FOR CM TO SPEAK W/SON OR DTR.
[2024-03-02] MEDS: cefTRIAXone sodium 1 GM in 0.9 % Sodium Chloride 50 ML IV (10:56)
--- NOTE | 2024-03-02 10:56 | P.PNIM_ITS ---
Subjective Subjective Date of Service: 03/02/24 Interval History: hypothermia + hypotension resolved alert, tolerating diet, cracking jokes SCr improved RLE redness/swelling improved Review of Systems Review of Systems: Yes all other systems are reviewed and are negative Physical Exam 2 Vital Signs: Vital Signs: Last Vital Signs Temp 97.4 F 03/02/24 08:00 Pulse 60 03/02/24 08:00 Resp 16 03/02/24 08:00 BP 116/75 03/02/24 08:00 Pulse Ox 97 03/02/24 08:00 O2 Del Method Room Air 03/02/24 08:00 BMI result Body Mass Index 25.3 Gen: in no acute distres HEENT: sclera anicteric, edentulous, moist mucus membranes Neck: supple Lungs: clear bilaterally Heart: irregular, slow around 60, no murmurs Abd: soft, non-tender, non-distended Ext: RLE swelling Skin: erythema of RLE from knee down without any purulence, skin breakdown on buttocks Neuro: alert and oriented to self/place, moving all extremities Psych: appropriate affect Objective Data Active Medications Acetaminophen (Acetaminophen 325 Mg Tablet) 650 mg PO Q6H PRN PRN Reason: Pain, Mild (Pain Scale 1-3), fever or headache Ceftriaxone Sodium 1 gm/ (Sodium Chloride) 50 mls @ 100 mls/hr IV Q24H [facility] Last Infusion: 03/01/24 10:25 Dose: Infused Documented By: HELLEN Vancomycin HCl 500 mg/ Sodium (Chloride) 110 mls @ 110 mls/hr IV Q24H [facility] Last Admin: 03/02/24 08:24 Dose: 110 mls/hr Documented By: ANAND Magnesium Hydroxide (Milk Of Magnesia 30 Ml Oral.Susp) 30 ml PO DAILY PRN PRN Reason: Constipation Melatonin (Melatonin 3 Mg Tablet) 6 mg PO BEDTIME PRN PRN Reason: Insomnia Ondansetron HCl (Ondansetron Hcl 4 Mg/2 Ml Vial) 4 mg IVPUSH Q8H PRN PRN Reason: Nausea and Vomiting Pantoprazole Sodium (Pantoprazole Sodium 40 Mg/10 Ml Vial) 40 mg IVPUSH BID@0630,1630 [facility] Last Admin: 03/02/24 05:55 Dose: 40 mg Documented By: GHISLAINE Pharmacy Consult (Consult Rx Vancomycin Dosing) 1 each MISCELLANE DAILY PRN PRN Reason: Consult order Polyethylene Glycol (Polyethylene Glycol 3350 17 Gm Powd.Pack) 17 gm PO DAILY PRN PRN Reason: Constipation Sodium Chloride (0.9 % Sodium Chloride Flush 3 Ml Syringe) 3 ml IVFLUSH QSHIFT MARK Last Admin: 03/02/24 08:25 Dose: Not Given Documented By: ANAND Non-Admin Reason: IV Running Labs 03/02/24 06:32 03/02/24 06:32 Labs: Laboratory Results - last 24 hr 03/01/24 03/01/24 03/02/24 10:31 16:34 06:32 MCV 89.1 MCH 30.1 MCHC 33.7 RDW 15.5 Plt Count 184 MPV 9.4 Absolute Nucleated RBC 0.000 Nucleated RBC % (auto) 0.0 Hold Purple Top SEE NOTE Anion Gap 18 11 L Estim Creat Clear Calc 23.7 27.5 Estimated GFR 30 35 Random Glucose 80 96 Calcium 7.6 L D 7.4 L Total Creatine Kinase 333 H Nasal Screen MRSA (PCR) NEGATIVE Nasal S. aureus Screen NEGATIVE Nasal MRSA/S.aureus Interp SEE NOTE Microbiology Microbiology Results: Microbiology 03/01/24 00:29 - Preliminary Blood - Venous No growth after 24 hours. 02/29/24 23:27 Blood Culture - Preliminary Blood - Venous No growth after 24 hours. Assessment and Plan (1) APURVA (acute kidney injury): Status: Acute Plan d2 89yo M with CKD, AF on apixaban, HTN, HLD, PVD, and lymphedema with recent admission to [facility]ul[facility]. Came in via EMS due to repeated falls with estimated time on the ground of 4-5 hr; found to have severe sepsis from cellulitis, APURVA, hyperK, rhabdomyolysis, and melena. severe sepsis due to RLE cellulitis - vanco + ceftriaxone 03/02-, follow BCx, no DVT on Duplex US hyperK - resolved; hold PO KCl supplementation that pt was on at home APURVA - prerenal; improved with IV bicarbonate and holding diuretics [on torsemide at home]; Nephrology following mild rhabdomyolysis - resolved with IV bicarbonate as above; troponin + LFT elevations due to rhabdomyolysis melena, FOBT+ stool - holding Eliquis, H+H stable, IV PPI, GI consulted sacral wounds - Wound Care consult pending AF - not on any rate control agents; hold Eliquis as above VTE ppx - SCDs, hold Eliquis due to melena dispo - will certainly require STR In my clinical judgment, the patient requires continued inpatient hospitalization for the following reasons: IV ABX Total time managing care of this patient today: 45 minutes. Quality Stroke Does the patient have a stroke diagnosis?: No VTE Prior VTE?: No VTE Risk Level:: Medical - moderate - high VTE Device Contraindication: N/A - Device Ordered VTE Drug Contraindication: Treatment Not Indicated
[2024-03-02 11:41] VITALS: BP 101/54; PULSE 66; RESP 18; TEMP 36.3; O2SAT 98
--- NOTE | 2024-03-02 11:47 | PM.CNNEP ---
History of Present Illness Reason for Consult Consult date: 03/02/24 Reason for consult: APURVA Chief Complaint Chief complaint: HyperK, APURVA, Cellulitis, Melena History of Present Illness Narrative: 89 year old male who lives alone (but whose daughter checks on him every day) who has a history of CKD [SCr 1.2 01/01/24], chronic HTN,PVD, and lymphedema who was recently admitted to [facility] in early December for cellulitis. He was brought into [facility] by ambulance at the request of his daughter due to her finding him down on the ground after falling for the past 2 days. He was probably on the ground for about 4-5 hours. He has had worsening swelling and redness of the right leg below the knee. No fever or anorexia. No chest pain, dyspnea, or abdominal pain. He is alert and oriented and denies any concerns, but is hard of hearing. In the ER, he was found to have severe sepsis with WBC of 25.5, RR 26, and lactate 2.7 with APURVA (SCr 2.88) and hyperK with level of 6.5 as well as CPK of 9. He had a large melanotic stool that tested positive for guaiac. He was given IV insulin, bicarbonate, NS, vancomycin, and pantoprazole. Dover placed with return of 950 mL urine. He was admitted for further management. Nephrology has been consulted to assist in his clinical care during his current hospital stay. Review of Systems Review of Systems Yes all other systems are reviewed and are negative PMF Past Medical History Medical History (Updated 03/02/24 @ 11:51 by Jerald Fernando MD) Peripheral vascular disease Hyperlipidemia Hypertension Lymphedema Atrial fibrillation Chronic kidney disease Social History Social History Household Members: Unknown / Unable to assess Housing: Unknown / Unable to assess Patient Tobacco Use Status: Tobacco use Unknown service: No Meds Allergies Allergy/AdvReac Type Severity Reaction Status Date / Time No Known Allergies Allergy Verified 02/29/24 22:58 Active Medications: Current Medications Acetaminophen (Acetaminophen 325 Mg Tablet) 650 mg PO Q6H PRN PRN Reason: Pain, Mild (Pain Scale 1-3), fever or headache Ceftriaxone Sodium 1 gm/ (Sodium Chloride) 50 mls @ 100 mls/hr IV Q24H [facility] Last Infusion: 03/02/24 11:41 Dose: Infused Vancomycin HCl 500 mg/ Sodium (Chloride) 110 mls @ 110 mls/hr IV Q24H [facility] Last Infusion: 03/02/24 10:58 Dose: Infused Magnesium Hydroxide (Milk Of Magnesia 30 Ml Oral.Susp) 30 ml PO DAILY PRN PRN Reason: Constipation Melatonin (Melatonin 3 Mg Tablet) 6 mg PO BEDTIME PRN PRN Reason: Insomnia Ondansetron HCl (Ondansetron Hcl 4 Mg/2 Ml Vial) 4 mg IVPUSH Q8H PRN PRN Reason: Nausea and Vomiting Pantoprazole Sodium (Pantoprazole Sodium 40 Mg/10 Ml Vial) 40 mg IVPUSH BID@0630,1630 [facility] Last Admin: 03/02/24 05:55 Dose: 40 mg Pharmacy Consult (Consult Rx Vancomycin Dosing) 1 each MISCELLANE DAILY PRN PRN Reason: Consult order Polyethylene Glycol (Polyethylene Glycol 3350 17 Gm Powd.Pack) 17 gm PO DAILY PRN PRN Reason: Constipation Sodium Chloride (0.9 % Sodium Chloride Flush 3 Ml Syringe) 3 ml IVFLUSH QSHIFT [facility] Last Admin: 03/02/24 08:25 Dose: Not Given Home Medications ?Medication ?Instructions ?Recorded ?Confirmed ?Last Taken ?Type apixaban 5 mg tablet (Eliquis) 5 mg PO BID 03/01/24 03/01/24 02/28/24 History potassium chloride 20 mEq 40 meq PO DAILY 03/01/24 03/01/24 02/28/24 History tablet,extended release torsemide 20 mg tablet 20 mg PO BID 03/01/24 03/01/24 02/28/24 History Physical Exam Vital Signs: Last Vital Signs Temp 97.4 F 03/02/24 08:00 Pulse 60 03/02/24 08:00 Resp 16 03/02/24 08:00 BP 116/75 03/02/24 08:00 Pulse Ox 97 03/02/24 08:00 O2 Del Method Room Air 03/02/24 08:00 BMI result Body Mass Index 25.3 Const General: no acute distress Orientation/consciousness: patient oriented x3 Eyes EOM: EOMs intact bilaterally Neck Neck: Yes supple Resp Auscultation: diminished lung sounds Cardio Rate: regular rate GI Palpation (GI): Soft to palpation Neuro General: patient oriented x3 Results Lab Results 03/02/24 06:32 03/02/24 06:32 Lab results: Chemistry 02/29/24 03/01/24 03/01/24 23:27 00:29 02:39 Sodium 132 L 134 L Potassium 6.5 H* 6.1 H* 6.1 H* Carbon Dioxide 16 L 19 L BUN 70 H 75 H Creatinine 2.88 H 2.62 H Calcium 8.8 8.7 03/01/24 03/01/24 03/02/24 08:48 16:34 06:32 Sodium 136 139 142 Potassium 5.0 4.5 4.1 Carbon Dioxide 21 L 19 L 29 BUN 73 H 65 H 59 H Creatinine 2.40 H 2.11 H 1.82 H Calcium 8.2 L 7.6 L D 7.4 L Hematology 02/29/24 03/01/24 03/02/24 23:27 08:48 06:32 WBC 25.5 H 21.7 H 11.0 H Hgb 13.4 L 12.1 L 11.0 L Plt Count 251 197 184 Urinalysis 03/01/24 02:08 Urine Color Yellow Urine Appearance Clear Urine pH 5.0 Ur Specific [place] 1.010 Urine Protein Trace Urine Glucose (UA) Negative Urine Ketones Negative Urine Blood Large (3+) H Urine Nitrite Negative Ur Leukocyte Esterase Negative Urine RBC 11-20 H Urine WBC 0-5 Ur Squamous Epith Cells 0-2 Hyaline Casts 3-5 Assessment and Plan (1) APURVA (acute kidney injury): Status: Acute (2) Rhabdomyolysis: Qualifiers: Rhabdomyolysis type: non-traumatic Qualified Code(s): M62.82 - Rhabdomyolysis Status: Acute (3) Acute hyperkalemia: Status: Acute Plan APURVA due to compromised renal perfusion with resultant tubular injury Also had myoglobin causing APURVA with hyperkalemia. Had metabolic acidosis. Was treated with IV sodium bicarbonate. Serum potassium normalized Metabolic acidosis resolved. Serum creatinine improving No recent suspect any GN or AIN; Has stage III CKD at baseline Could discontinue IV fluids and monitor his renal functions closely Continue rest of his current medical management No indication for any renal replacement therapy; labs AM Procedures Date of Service Date of Service: 03/02/24
[2024-03-02 16:00] VITALS: BP 101/73; PULSE 76; RESP 18; TEMP 36.3; O2SAT 95
[2024-03-02 19:56] VITALS: BP 101/63; PULSE 65; RESP 16; TEMP 36.6; O2SAT 99
[2024-03-02] MEDS: polyethylene glycoL 3350 17 GM POWD.PACK PO (22:59)
[2024-03-03] VITALS (7 sets, daily range): BP systolic 102–149; BP diastolic 53–68; PULSE 60–71; RESP 16–20; TEMP 36.1–37.1; O2SAT 93–98; BMI 25.3
[2024-03-03] MEDS: Pantoprazole Sodium 40 MG/10 ML VIAL IVPUSH ×2 (05:49→17:35)
[2024-03-03 07:18] LABS: Anion Gap 13 (12-20); Blood Urea Nitrogen 50 mg/dL (9-16); Calcium 7.4 mg/dL (8.4-10.2); Carbon Dioxide 24 mmol/L (22-29); Chloride 104 mmol/L (96-108); Estimated Glomerular Filt Rate 48; Glucose Random 85 mg/dL (60-115); Potassium 3.9 mmol/L (3.3-5.1); Sodium 137 mmol/L (135-145)
[2024-03-03 07:26] LABS: Vancomycin Random 12.4 mcg/mL (15-20)
--- NOTE | 2024-03-03 07:31 | HE.PHANOTE ---
Addendum entered by Rodrigue Hook 03/03/24 07:39: Amending last note. Today's SCr returned much improved, 500mg q24h no longer therapeutic. Will change to 750mg q24h starting today. Projected AUC is 413 mg/L with a trough of 13.4 mg/L. Trough ordered for same time tomorrow. Original Note: RE Vanco Renal function improved, currently the projected trough is therapeutic for a goal of 10 - 15 to treat skin infection. Will continue regimen, but may need to adjust tomorrow. Will order next trough for 03/04 @0600.
[2024-03-03] MEDS: vancomycin HCL 750 MG in 0.9 % Sodium Chloride 250 ML 265 MG IV (08:13)
[2024-03-03] MEDS: 0.9 % Sodium Chloride Flush 3 ML SYRINGE IVFLUSH ×2 (08:14→17:35)
[2024-03-03] MEDS: cefTRIAXone sodium 1 GM in 0.9 % Sodium Chloride 50 ML IV (12:16)
--- NOTE | 2024-03-03 12:20 | HO.WOUND ---
Addendum entered by Michelle Busch RN 03/03/24 12:45: Right Great Toe - Suspect arterial wound - Killen with Betadine daily - leave open to air. Original Note: Wound Consult: Initial 89yr old?male admitted [place] [facility] [place] 03[place]01[place]24 - See progress notes and H&P for detailed history.? Wound consult placed for Buttock, right Leg and Rt Toe wounds POA .? Patient agreeable to assessment and photo documentation.? Patient is noted for multiple wounds. He denies knowledge of the wounds and reports up until few weeks ago he felt he was independent. Overall patient appears malnourished and would benefit from nutrition consultation - if not in place will consult. Sacrum - Stage 2 Pressure Injury POA - Foam dressing applied and off loaded with pillows Bilateral Lower Legs - Venous Dermatitis redness, swelling and dry epidermal skin noted Note right leg is lomger in length due to hip fracture at 17yr old pt reports he does wear a lift on his shoe. Left Lateral Leg -Venous Dermatitis redness, swelling and dry epidermal skin noted Left Posterior Leg - Venous dermatitis wounds - various sizes in various stages of healing - adherent yellow slough with granulation buds noted Left Heel - Deep Tissue Injury POA - nonblanchable dark maroon purple tissue with epidermal peeling moist surrounding tissue noted - Durafiber AG applied for moisture management and heel elevation Right Leg Cellulititis Redness Right Ankle - Stage 3 Pressure Injury POA - marbled wound bed with yellow slough and moist pink tissue - irregular boarders Right Posterior Leg - Venous dermatitis wounds - various sizes in various stages of healing - adherent yellow slough with granulation buds noted Right Posterior Achilles area - Venous Dermatitis wound with full thickness tissue loss - moist adherent yellow slough noted redness, swelling and dry epidermal skin noted Right Heel - Deep Tissue Injury POA - dry eschar adherent to wound bed some moist surrounding tissue noted - Durafiber AG applied for moisture management and heel elevation Recommendations: 1. Turn and Reposition every 2 hours and as needed for patient comfort.? Use pillows or wedges to support off loading positions. 2. Off Load all bony prominences with use of pillows and heel boots if needed.? Apply Preventative foams where needed. ? 3. Monitor for incontinence and moisture control, use barrier creams when needed for prevention and treatment. 4. Provide adequate and supplemental nutrition.? 5. Order low air loss mattress. 6. When applicable maintain blood glucose levels per Providers order. 7. Bilateral Heels and Right Ankle - Elevate off bed surface with pillows. Cleanse with NS moist gauze, cover with Durafiber AG and foam dressing. Change every 3 days and PRN. 8. Bilateral Lower Legs - Elevate off bed surface with pillows. Cleanse with Micheal spray and wipe clean, Apply Durafiber AG to open wound beds cover with ABD pads and gauze wrap. Change every 3 days and PRN 9. Sacrum - Off Load Pressure? - Cleanse with PH balance spray or wipes, pat dry. ?Apply thin layer of Triad to wound bed. Do not remove all of paste between applications as this may cause further skin damage.? Cover with foam dressing to aid in off loading and protection from friction. Change every other day and PRN. Re-consult wound care Nurse for wound deterioration or wound changes.
--- NOTE | 2024-03-03 12:43 | MHC.CM.PN ---
EMR REVIEWED, CM MET W/PT DTR PAT AND GDTR AT BEDSIDE, GDTR NOT INVOLVED IN CONVERSATION, PAT VERY INSISTENT THAT CM CAN PRINT OUT AND DO A POA/HCP WITH PT, CM EXPLAINED TO PAT THAT IT'S NOT SIMPLE JUST PRINTING OUT A POA THERE ARE TOO MANY TYPES... PAT STILL INSISTENT AND CM DISCUSSED W/CM DIRECTOR TO DISCUSS, PER CM DIRECTOR REPORTED IF IT IS NOT NEEDED FOR DC PLAN CM TYPICALLY DOES NOT DO POA'S AND IF FAMILY BRINGS IN THEIR OWN POA PAPERWORK IT CAN BE CONSIDERED. CM HAS RELAYED INFO TO PAT. PT DID COMPLETE A HCP NAMING HIS DTR PAT DURAN [phone] HIS [facility] AND SON NORBERT HASSAN [phone] HIS ALTERNATE, PAT PROVIDED W/ORIGINAL/1 COPY AND EDUCATIONAL HANDOUT, PAT ALSO PROVIDED W/A COPY FOR NORBERT IN SEPARATE ENVELOPE, COPY UPLOADED TO [facility] AND PLACED IN CHART. DISPO DISCUSSED AND PT/DTR BOTH AGREEABLE TO STR, PAT PROVIDED W/PRINTOUT OF LOCAL SNF'S AND WILL SPEAK TO CM TOMORROW 03/04 WHEN SHE HAS DECIDED ON PREFERRED SNF'S.
--- NOTE | 2024-03-03 12:46 | P.PNNP_ITS ---
Subjective Subjective Date of Service: 03/03/24 Interval history: Seen and examined this AM. All recent data reviewed Physical Exam 2 Vital Signs: Vital Signs: Last Vital Signs Temp 97.4 F 03/03/24 11:32 Pulse 60 03/03/24 11:32 Resp 20 03/03/24 11:32 BP 110/53 L 03/03/24 11:32 Pulse Ox 96 03/03/24 11:32 O2 Del Method Room Air 03/03/24 11:32 BMI result Body Mass Index 25.3 Const: General: no acute distress Orientation/consciousness: patient oriented x3 Eyes: EOM: EOMs intact bilaterally Resp: Auscultation: diminished lung sounds Cardio: Rate: regular rate GI: Palpation (GI): Soft to palpation Neuro: General: patient oriented x3 Objective Data Labs 03/02/24 06:32 03/03/24 06:14 Labs: Laboratory Results - last 24 hr 03/03/24 06:14 Hold Purple Top SEE NOTE Sodium 137 Potassium 3.9 Chloride 104 Carbon Dioxide 24 Anion Gap 13 BUN 50 H Creatinine 1.39 Estim Creat Clear Calc 36.0 Estimated GFR 48 Random Glucose 85 Calcium 7.4 L Random Vancomycin 12.4 L Microbiology Microbiology Results: Microbiology 03/01/24 00:29 Blood - Venous - Preliminary No growth after 48 hours. 02/29/24 23:27 Blood - Venous Blood Culture - Preliminary No growth after 48 hours. Procedures Date of Service Date of Service: 03/03/24 Assessment & Plan Assessment and plan (1) APURVA (acute kidney injury): Status: Acute Plan APURVA due to compromised renal perfusion with resultant tubular injury- resolving Also had myoglobin causing APURVA with hyperkalemia. Had metabolic acidosis. Was treated with IV sodium bicarbonate. Serum potassium normalized Metabolic acidosis resolved. Serum creatinine improving No recent suspect any GN or AIN; Has stage III CKD at baseline Could discontinue IV fluids and monitor his renal functions closely Continue rest of his current medical management; labs AM Progress Note: Quality Stroke Does the patient have a stroke diagnosis?: No
--- NOTE | 2024-03-03 13:54 | HO.PM.IMPN ---
Subjective Subjective Date of Service: 03/03/24 Interval History: f/u on sepsis, hypothermia and hypotension resolved, no gi bleeding Physical Exam Vital Signs: Vital Signs: Last Vital Signs Temp 97.4 F 03/03/24 11:32 Pulse 60 03/03/24 11:32 Resp 20 03/03/24 11:32 BP 110/53 L 03/03/24 11:32 Pulse Ox 96 03/03/24 11:32 O2 Del Method Room Air 03/03/24 11:32 BMI result Body Mass Index 25.3 .Gen: in no acute distres HEENT: sclera anicteric, edentulous, moist mucus membranes Neck: supple Lungs: clear bilaterally Heart: irregular, slow around 60, no murmurs Abd: soft, non-tender, non-distended Ext: RLE swelling Skin: erythema of RLE from knee down without any purulence, skin breakdown on buttocks Neuro: alert and oriented to self/place, moving all extremities Psych: appropriate affect Objective Data Active Medications Acetaminophen (Acetaminophen 325 Mg Tablet) 650 mg PO Q6H PRN PRN Reason: Pain, Mild (Pain Scale 1-3), fever or headache Vancomycin HCl 750 mg/ Sodium (Chloride) 265 mls @ 265 mls/hr IV Q24H [facility] Last Infusion: 03/03/24 12:49 Dose: Infused Documented By: KAILEY Ceftriaxone Sodium 1 gm/ (Sodium Chloride) 50 mls @ 100 mls/hr IV Q24H [facility] Last Infusion: 03/03/24 12:49 Dose: Infused Documented By: KAILEY Magnesium Hydroxide (Milk Of Magnesia 30 Ml Oral.Susp) 30 ml PO DAILY PRN PRN Reason: Constipation Melatonin (Melatonin 3 Mg Tablet) 6 mg PO BEDTIME PRN PRN Reason: Insomnia Ondansetron HCl (Ondansetron Hcl 4 Mg/2 Ml Vial) 4 mg IVPUSH Q8H PRN PRN Reason: Nausea and Vomiting Pantoprazole Sodium (Pantoprazole Sodium 40 Mg/10 Ml Vial) 40 mg IVPUSH BID@0630,1630 [facility] Last Admin: 03/03/24 05:49 Dose: 40 mg Documented By: GHISLAINE Pharmacy Consult (Consult Rx Vancomycin Dosing) 1 each MISCELLANE DAILY PRN PRN Reason: Consult order Polyethylene Glycol (Polyethylene Glycol 3350 17 Gm Powd.Pack) 17 gm PO DAILY PRN PRN Reason: Constipation Last Admin: 03/02/24 22:59 Dose: 17 gm Documented By: GHISLAINE Sodium Chloride (0.9 % Sodium Chloride Flush 3 Ml Syringe) 3 ml IVFLUSH QSHIFT [facility] Last Admin: 03/03/24 08:14 Dose: 3 ml Documented By: ANAND Labs 03/02/24 06:32 03/03/24 06:14 Labs: Laboratory Results - last 24 hr 03/03/24 06:14 Hold Purple Top SEE NOTE Anion Gap 13 Estim Creat Clear Calc 36.0 Estimated GFR 48 Random Glucose 85 Calcium 7.4 L Random Vancomycin 12.4 L Microbiology Microbiology Results: Microbiology 03/01/24 00:29 - Preliminary Blood - Venous No growth after 48 hours. 02/29/24 23:27 Blood Culture - Preliminary Blood - Venous No growth after 48 hours. Assessment and Plan (1) APURVA (acute kidney injury): Status: Acute Plan 89yo M with CKD, AF on apixaban, HTN, HLD, PVD, and lymphedema with recent admission to [facility] for cellulitis. Came in via EMS due to repeated falls with estimated time on the ground of 4-5 hr; found to have severe sepsis from cellulitis, APURVA, hyperK, rhabdomyolysis, and melena. severe sepsis due to RLE cellulitis - vanco + ceftriaxone 03/02-, follow BCx, no DVT on Duplex US hyperK - resolved; hold PO KCl supplementation that pt was on at home APURVA - prerenal; improved with IV bicarbonate and holding diuretics [on torsemide at home]; Nephrology following mild rhabdomyolysis - resolved with IV bicarbonate as above; troponin + LFT elevations due to rhabdomyolysis melena, FOBT+ stool - holding Eliquis, H+H stable, IV PPI, GI consulted, check h/h sacral wounds, ulcer of legs, toe--see wound care pics - Wound care recommendation AF - not on any rate control agents; holding eliquis and will discuss with gi when to restart VTE ppx - SCDs, hold Eliquis due to melena dispo - will certainly require STR In my clinical judgment, the patient requires continued inpatient hospitalization for the following reasons: IV ABX Total time managing care of this patient today: 45 minutes. Quality Stroke Does the patient have a stroke diagnosis?: No VTE Prior VTE?: No VTE Risk Level:: Medical - moderate - high VTE Device Contraindication: N/A - Device Ordered VTE Drug Contraindication: Treatment Not Indicated
[2024-03-03 14:10] LABS: MANUAL DIFF FLAG NO
[2024-03-03 14:16] LABS: Basophils Percent Auto 0.1 % (0-2); Eosinophils Absolute Auto 0.1 X10*3/uL (0.0-0.4); Eosinophils Percent Auto 1.3 % (0-4); Hematocrit 32.6 % (42.0-52.0); Imm Gran Abs Auto 0.03 X10*3/uL (0.00-0.03); Imm Gran Pct Auto 0.4 % (0.0-0.4); Lymphocytes Absolute Auto 0.6 X10*3/uL (1.2-4.9); Lymphocytes Percent Auto 7.8 % (20-40); Mean Corpuscular HGB Conc 33.7 g/dl (31.0-36.0); Mean Corpuscular Hemoglobin 30.1 pg (27.0-33.0); Mean Corpuscular Volume 89.1 fL (80.0-98.0); Mean Platelet Volume 9.7 fL (9.4-12.4); Monocytes Absolute Auto 0.7 X10*3/uL (0.1-1.2); Monocytes Percent Auto 8.8 % (2-11); Neutrophils Absolute Auto 6.7 x10*3/uL (2.0-8.3); Neutrophils Percent Auto 81.6 % (45-73); Platelet Count 179 X10*3/uL (160-400); Red Blood Count 3.66 X10*6/uL (4.60-5.80); Red Cell Distribution Width 15.6 % (11.0-16.0); White Blood Count 8.2 X10*3/uL (4.8-10.8)
[2024-03-04] MEDS: 0.9 % Sodium Chloride Flush 3 ML SYRINGE IVFLUSH ×3 (00:15→17:42)
[2024-03-04 02:58] VITALS: BP 112/71; PULSE 76; RESP 18; TEMP 36.3; O2SAT 95
[2024-03-04] MEDS: Pantoprazole Sodium 40 MG/10 ML VIAL IVPUSH (05:36)
--- NOTE | 2024-03-04 05:48 | PC.NURSE ---
Pt AOx3, forgetful, able to make needs known. Dover catheter in place, patent, draining CYU. Approx 0210 pt incontinent of small amount of maroon, black tarry stool which was liquid. notified. Call bustillo within reach, bed alarm on.
[2024-03-04 06:59] LABS: Vancomycin Random 14.1 mcg/mL (15-20)
[2024-03-04 07:04] LABS: Creatinine Clr Calc Pharmacy 44.7; Estimated Glomerular Filt Rate > 60
[2024-03-04 07:21] LABS: Anion Gap 12 (12-20)
--- NOTE | 2024-03-04 07:21 | HE.PHANOTE ---
RE: vanco Trough on 03/04 came back at 14.1 however the predicted AUC keeping 750mg Q24 was sub-therapeutic. Changed dose to 1000mg Q24H with predicted aUC of 508mg/L, trough of 16.4mg/L. Getting a random level 03/05 @0600
[2024-03-04 07:25] LABS: Carbon Dioxide 22 mmol/L (22-29); Chloride 106 mmol/L (96-108); Potassium 4.1 mmol/L (3.3-5.1); Sodium 136 mmol/L (135-145)
[2024-03-04 08:00] VITALS: BP 109/68; PULSE 54; RESP 18; TEMP 36.2; O2SAT 97
[2024-03-04] MEDS: vancomycin HCL 1,000 MG in 0.9 % Sodium Chloride 250 ML 270 MG IV (08:16)
--- NOTE | 2024-03-04 09:21 | PM.PNNEP ---
Subjective Subjective Date of Service: 03/04/24 Interval history: Events noted; All recent data reviewed. Renal function back to baseline Physical Exam Vital Signs: Vital Signs: Last Vital Signs Temp 97.1 F 03/04/24 08:00 Pulse 54 03/04/24 08:00 Resp 18 03/04/24 08:00 BP 109/68 03/04/24 08:00 Pulse Ox 97 03/04/24 08:00 O2 Del Method Room Air 03/04/24 08:00 BMI result Body Mass Index 25.3 Const: General: no acute distress Orientation/consciousness: patient oriented x3 Eyes: EOM: EOMs intact bilaterally Resp: Auscultation: diminished lung sounds Cardio: Rate: regular rate GI: Palpation (GI): Soft to palpation Neuro: General: patient oriented x3 Objective Data Labs 03/03/24 06:14 03/04/24 06:14 Labs: Laboratory Results - last 24 hr 03/03/24 03/04/24 06:14 06:14 WBC 8.2 RBC 3.66 L Hgb 11.0 L Hct 32.6 L MCV 89.1 MCH 30.1 MCHC 33.7 RDW 15.6 Plt Count 179 MPV 9.7 Immature Gran % (Auto) 0.4 Neut % (Auto) 81.6 H Lymph % (Auto) 7.8 L [place] % (Auto) 8.8 Eos % (Auto) 1.3 Baso % (Auto) 0.1 Lymph # (Auto) 0.6 L [place] # (Auto) 0.7 Eos # (Auto) 0.1 Baso # (Auto) 0.0 Abs Immat Gran (auto) 0.03 Absolute Neuts (auto) 6.7 Absolute Nucleated RBC 0.000 Nucleated RBC % (auto) 0.0 Sodium 136 Potassium 4.1 Chloride 106 Carbon Dioxide 22 Anion Gap 12 Creatinine 1.12 Estim Creat Clear Calc 44.7 Estimated GFR > 60 Magnesium 2.0 Random Vancomycin 14.1 L Microbiology Microbiology Results: Microbiology 03/01/24 00:29 Blood - Venous - Preliminary No growth after 48 hours. 02/29/24 23:27 Blood - Venous Blood Culture - Preliminary No growth after 48 hours. Procedures Date of Service Date of Service: 03/04/24 Assessment & Plan Assessment and plan (1) APURVA (acute kidney injury): Status: Acute Plan APURVA due to compromised renal perfusion with resultant tubular injury- resolved Also had myoglobin causing APURVA with hyperkalemia. Had metabolic acidosis. Was treated with IV sodium bicarbonate. Serum potassium normalized Metabolic acidosis resolved. Serum creatinine improved to baseline No recent suspect any GN or AIN; Has stage III CKD at baseline Continue rest of his current medical management Progress Note: Quality Stroke Does the patient have a stroke diagnosis?: No
--- NOTE | 2024-03-04 10:21 | P.PNIM_ITS ---
Subjective Subjective Date of Service: 03/04/24 Interval History: Confused but appear to be baseline, no new issues Physical Exam 2 Vital Signs: Vital Signs: Last Vital Signs Temp 97.1 F 03/04/24 08:00 Pulse 54 03/04/24 08:00 Resp 18 03/04/24 08:00 BP 109/68 03/04/24 08:00 Pulse Ox 97 03/04/24 08:00 O2 Del Method Room Air 03/04/24 08:00 BMI result Body Mass Index 25.3 .Gen: in no acute distres HEENT: sclera anicteric, edentulous, moist mucus membranes Neck: supple Lungs: clear bilaterally Heart: irregular, slow around 60, no murmurs Abd: soft, non-tender, non-distended Ext: RLE swelling Skin: erythema of RLE from knee down without any purulence, skin breakdown on buttocks Neuro: alert and oriented to self/place, moving all extremities Psych: appropriate affect Objective Data Active Medications Acetaminophen (Acetaminophen 325 Mg Tablet) 650 mg PO Q6H PRN PRN Reason: Pain, Mild (Pain Scale 1-3), fever or headache Ceftriaxone Sodium 1 gm/ (Sodium Chloride) 50 mls @ 100 mls/hr IV Q24H [facility] Last Infusion: 03/03/24 12:49 Dose: Infused Documented By: KAILEY Vancomycin HCl 1,000 mg/ (Sodium Chloride) 270 mls @ 270 mls/hr IV Q24H [facility] Last Admin: 03/04/24 08:16 Dose: 270 mls/hr Documented By: ANDREY Magnesium Hydroxide (Milk Of Magnesia 30 Ml Oral.Susp) 30 ml PO DAILY PRN PRN Reason: Constipation Melatonin (Melatonin 3 Mg Tablet) 6 mg PO BEDTIME PRN PRN Reason: Insomnia Ondansetron HCl (Ondansetron Hcl 4 Mg/2 Ml Vial) 4 mg IVPUSH Q8H PRN PRN Reason: Nausea and Vomiting Pantoprazole Sodium (Pantoprazole Sodium 40 Mg/10 Ml Vial) 40 mg IVPUSH BID@0630,1630 [facility] Last Admin: 03/04/24 05:36 Dose: 40 mg Documented By: PILLO Pharmacy Consult (Consult Rx Vancomycin Dosing) 1 each MISCELLANE DAILY PRN PRN Reason: Consult order Polyethylene Glycol (Polyethylene Glycol 3350 17 Gm Powd.Pack) 17 gm PO DAILY PRN PRN Reason: Constipation Last Admin: 03/02/24 22:59 Dose: 17 gm Documented By: GHISLAINE Sodium Chloride (0.9 % Sodium Chloride Flush 3 Ml Syringe) 3 ml IVFLUSH QSHIFT [facility] Last Admin: 03/04/24 08:17 Dose: 3 ml Documented By: LIBERTADSCEL Labs 03/03/24 06:14 03/04/24 06:14 Labs: Laboratory Results - last 24 hr 03/03/24 03/04/24 06:14 06:14 MCV 89.1 MCH 30.1 MCHC 33.7 RDW 15.6 Plt Count 179 MPV 9.7 Immature Gran % (Auto) 0.4 Neut % (Auto) 81.6 H Lymph % (Auto) 7.8 L [place] % (Auto) 8.8 Eos % (Auto) 1.3 Baso % (Auto) 0.1 Lymph # (Auto) 0.6 L [place] # (Auto) 0.7 Eos # (Auto) 0.1 Baso # (Auto) 0.0 Abs Immat Gran (auto) 0.03 Absolute Neuts (auto) 6.7 Absolute Nucleated RBC 0.000 Nucleated RBC % (auto) 0.0 Anion Gap 12 Estim Creat Clear Calc 44.7 Estimated GFR > 60 Magnesium 2.0 Random Vancomycin 14.1 L Assessment and Plan (1) APURVA (acute kidney injury): Status: Acute Plan 89yo M with CKD, AF on apixaban, HTN, HLD, PVD, and lymphedema with recent admission to [facility] for cellulitis. Came in via EMS due to repeated falls with estimated time on the ground of 4-5 hr; found to have severe sepsis from cellulitis, APURVA, hyperK, rhabdomyolysis, and melena. severe sepsis due to RLE cellulitis - vanco + ceftriaxone 03/02-, follow BCx, no DVT on Duplex US -wbc 21 down to 8 hyperK - resolved; hold PO KCl supplementation that pt was on at home APURVA - prerenal; resolved with IV bicarbonate and holding diuretics [on torsemide at home]; Nephrology following mild rhabdomyolysis - resolved with IV bicarbonate as above; troponin + LFT elevations due to rhabdomyolysis melena, FOBT+ stool - holding Eliquis, H+H stable, IV PPI, GI consulted, check h/h sacral wounds, ulcer of legs, toe--see wound care pics - Wound care recommendation AF - not on any rate control agents; restart eliquis and monitor h/h VTE ppx - SCDs, eliquis dispo - will certainly require STR In my clinical judgment, the patient requires continued inpatient hospitalization for the following reasons: IV ABX Total time managing care of this patient today: 45 minutes. Quality Stroke Does the patient have a stroke diagnosis?: No VTE Prior VTE?: No VTE Risk Level:: Medical - moderate - high VTE Device Contraindication: N/A - Device Ordered VTE Drug Contraindication: Treatment Not Indicated
--- NOTE | 2024-03-04 10:23 | MHC.CLN ---
F/U PT WITH INCREASED NUTRITION RISK R/T PRESSURE INJURIES PT ON REGULAR DIET PO 75-100% PT RECEIVING ENSURE TID TO PROMOTE WOUND HEALING SUPPLEMENT TO PROVIDE 1050KCALS, 60G PROTEIN MONITOR PO INTAKE AND ENCOURAGE SUPPLEMENTS
[2024-03-04] MEDS: cefTRIAXone sodium 1 GM in 0.9 % Sodium Chloride 50 ML IV (10:46)
[2024-03-04] MEDS: Doxycycline Monohydrate 100 MG CAPSULE PO ×2 (10:46→21:35)
[2024-03-04] MEDS: Apixaban 5 MG TABLET PO ×2 (10:46→21:34)
--- NOTE | 2024-03-04 11:35 | MHC.CM.PN ---
Addendum entered by Elsy Drake RN 03/04/24 12:23: CLARIFICATION PT'S DTR'S NAME IS PAT Original Note: CM MET W/PT AND DTR/TRACE AT BEDSIDE, TRACE REPORTS SHE HAS NOT BEEN ABLE TO DISCUSS STR'S W/HER BROTHER NORBERT AND WILL DO SO TODAY, TRACE REPORTS SHE ALSO WANTS TO TOUR [facility] OF [place] LATER TODAY, TRACE IS AWARE PT MAY BE CLEARED FOR DC SOON TOMORROW, TRACE WILL FOLLOW-UP W/CM LATER TODAY VS TOMORROW AM, CM WILL CONT TO FOLLOW FOR DC NEEDS.
[2024-03-04 12:00] VITALS: BP 105/60; PULSE 62; RESP 18; TEMP 36.6; O2SAT 96
[2024-03-04 16:00] VITALS: BP 108/58; PULSE 64; RESP 20; TEMP 36.6; O2SAT 100
--- NOTE | 2024-03-04 16:51 | HO.WOUND ---
Wound Consult: Follow up 89yr old?male admitted to [facility] on 03/01/24 - See progress notes and H&P for detailed history.? Wound consult requested by direct care nurse for Left index finger and right dorsal hand wounds. remainder of the wounds not assessed at todays consultation. ? Patient agreeable to assessment and photo documentation.? Left Index Finger Etiology: ?Unknown Etiology - no source of known pressure - possible traumatic injury secondary to fall at home Measurements: 1.5cm x 1cm x 0.1cm Wound Bed: dry lifting eschar Drainage / Odor: none noted Edges: ?lifting and well defined Clarisa wound: Intact ? No Induration, Fluctuance or Warmth noted Pain: denies Goals of Treatment: ? Keep dry and stable Right Hand Etiology: ??Abrasion Wound Bed: scattered areas of partial thickness tissue loss Drainage / Odor: dried bloody drainage Edges: ? irregular Clarisa wound: ?Intact dry skin No Induration, Fluctuance or Warmth noted Pain: denies Goals of Treatment: Foam dressing for moist wound healing Recommendations: 1. Turn and Reposition every 2 hours and as needed for patient comfort.? Use pillows or wedges to support off loading positions. 2. Off Load all bony prominences with use of pillows and heel boots if needed.? Apply Preventative foams where needed. ? 3. Monitor for incontinence and moisture control, use barrier creams when needed for prevention and treatment. 4. Provide adequate and supplemental nutrition.? 5. Order low air loss mattress. 6. When applicable maintain blood glucose levels per Providers order. 7. Bilateral Heels and Right Ankle - Elevate off bed surface with pillows. Cleanse with NS moist gauze, cover with Durafiber AG and foam dressing. Change every 3 days and PRN. 8. Bilateral Lower Legs - Elevate off bed surface with pillows. Cleanse with Micheal spray and wipe clean, Apply Durafiber AG to open wound beds cover with ABD pads and gauze wrap. Change every 3 days and PRN 9. Sacrum - Off Load Pressure? - Cleanse with PH balance spray or wipes, pat dry. ?Apply thin layer of Triad to wound bed. Do not remove all of paste between applications as this may cause further skin damage.? Cover with foam dressing to aid in off loading and protection from friction. Change every other day and PRN. 10. Right Hand - Cleanse with NS, pat dry/ Apply skin prep, cover with foam dressing. Change every 5 days. 11. Left Index Finger - Cleanse with NS, pat dry. [place] with Betadine cover with dry gauze and secure with tape. Change daily. Re-consult wound care Nurse for wound deterioration or wound changes. From Previous consultation visit 03/02/24: Patient is noted for multiple wounds. He denies knowledge of the wounds and reports up until few weeks ago he felt he was independent. Overall patient appears malnourished and would benefit from nutrition consultation - if not in place will consult. Sacrum - Stage 2 Pressure Injury POA - Foam dressing applied and off loaded with pillows Bilateral Lower Legs - Venous Dermatitis redness, swelling and dry epidermal skin noted Note right leg is lomger in length due to hip fracture at 17yr old pt reports he does wear a lift on his shoe. Left Lateral Leg -Venous Dermatitis redness, swelling and dry epidermal skin noted Left Posterior Leg - Venous dermatitis wounds - various sizes in various stages of healing - adherent yellow slough with granulation buds noted Left Heel - Deep Tissue Injury POA - nonblanchable dark maroon purple tissue with epidermal peeling moist surrounding tissue noted - Durafiber AG applied for moisture management and heel elevation Right Leg Cellulititis Redness Right Ankle - Stage 3 Pressure Injury POA - marbled wound bed with yellow slough and moist pink tissue - irregular boarders Right Posterior Leg - Venous dermatitis wounds - various sizes in various stages of healing - adherent yellow slough with granulation buds noted Right Posterior Achilles area - Venous Dermatitis wound with full thickness tissue loss - moist adherent yellow slough noted redness, swelling and dry epidermal skin noted Right Heel - Deep Tissue Injury POA - dry eschar adherent to wound bed some moist surrounding tissue noted - Durafiber AG applied for moisture management and heel elevation Recommendations: 1. Turn and Reposition every 2 hours and as needed for patient comfort.? Use pillows or wedges to support off loading positions. 2. Off Load all bony prominences with use of pillows and heel boots if needed.? Apply Preventative foams where needed. ? 3. Monitor for incontinence and moisture control, use barrier creams when needed for prevention and treatment. 4. Provide adequate and supplemental nutrition.? 5. Order low air loss mattress. 6. When applicable maintain blood glucose levels per Providers order. 7. Bilateral Heels and Right Ankle - Elevate off bed surface with pillows. Cleanse with NS moist gauze, cover with Durafiber AG and foam dressing. Change every 3 days and PRN. 8. Bilateral Lower Legs - Elevate off bed surface with pillows. Cleanse with Micheal spray and wipe clean, Apply Durafiber AG to open wound beds cover with ABD pads and gauze wrap. Change every 3 days and PRN 9. Sacrum - Off Load Pressure? - Cleanse with PH balance spray or wipes, pat dry. ?Apply thin layer of Triad to wound bed. Do not remove all of paste between applications as this may cause further skin damage.? Cover with foam dressing to aid in off loading and protection from friction. Change every other day and PRN. Re-consult wound care Nurse for wound deterioration or wound changes.
[2024-03-04 19:12] VITALS: BP 116/86; PULSE 66; RESP 20; TEMP 36.2; O2SAT 96
[2024-03-05] VITALS (8 sets, daily range): BP systolic 105–134; BP diastolic 59–74; PULSE 35–72; RESP 14–20; TEMP 36–37.1; O2SAT 94–96
[2024-03-05] MEDS: 0.9 % Sodium Chloride Flush 3 ML SYRINGE IVFLUSH ×4 (02:12→21:02)
[2024-03-05 06:47] LABS: Hematocrit 32.5 % (42.0-52.0); Hemoglobin 10.6 g/dl (14.0-18.0); Mean Corpuscular HGB Conc 32.6 g/dl (31.0-36.0); Mean Corpuscular Hemoglobin 29.4 pg (27.0-33.0); Mean Platelet Volume 9.4 fL (9.4-12.4); Platelet Count 213 X10*3/uL (160-400); Red Blood Count 3.61 X10*6/uL (4.60-5.80); Red Cell Distribution Width 15.5 % (11.0-16.0); White Blood Count 7.4 X10*3/uL (4.8-10.8)
--- NOTE | 2024-03-05 08:39 | P.PNNP_ITS ---
Subjective Subjective Date of Service: 03/05/24 Interval history: All recent data reviewed Physical Exam 2 Vital Signs: Vital Signs: Last Vital Signs Temp 97.3 F 03/05/24 07:19 Pulse 52 03/05/24 07:19 Resp 18 03/05/24 07:19 BP 105/66 03/05/24 07:19 Pulse Ox 96 03/05/24 07:19 O2 Del Method Room Air 03/05/24 07:19 BMI result Body Mass Index 25.3 Const: General: no acute distress Eyes: EOM: EOMs intact bilaterally Resp: Auscultation: diminished lung sounds Cardio: Rate: regular rate GI: Palpation (GI): Soft to palpation Neuro: General: moves all extremities Objective Data Labs 03/05/24 06:07 03/04/24 06:14 Labs: Laboratory Results - last 24 hr 03/05/24 06:07 WBC 7.4 RBC 3.61 L Hgb 10.6 L Hct 32.5 L MCV 90.0 MCH 29.4 MCHC 32.6 RDW 15.5 Plt Count 213 MPV 9.4 Absolute Nucleated RBC 0.000 Nucleated RBC % (auto) 0.0 Microbiology Microbiology Results: Microbiology 03/01/24 00:29 Blood - Venous - Preliminary No growth after 48 hours. 02/29/24 23:27 Blood - Venous Blood Culture - Preliminary No growth after 48 hours. Procedures Date of Service Date of Service: 03/05/24 Assessment & Plan Assessment and plan (1) APURVA (acute kidney injury): Status: Acute Plan APURVA due to compromised renal perfusion with resultant tubular injury- resolved Also had myoglobin causing APURVA with hyperkalemia. Had metabolic acidosis. Was treated with IV sodium bicarbonate. Serum potassium normalized Metabolic acidosis resolved. Serum creatinine improved to baseline Has stage III CKD at baseline;Continue rest of his current medical management Progress Note: Quality Stroke Does the patient have a stroke diagnosis?: No
[2024-03-05] MEDS: Apixaban 5 MG TABLET PO ×2 (08:54→21:01)
[2024-03-05] MEDS: Doxycycline Monohydrate 100 MG CAPSULE PO ×2 (11:51→21:02)
[2024-03-05] MEDS: cefTRIAXone sodium 1 GM in 0.9 % Sodium Chloride 50 ML IV (11:51)
--- NOTE | 2024-03-05 12:03 | PC.NURSE ---
Addendum entered by Gabriella Nguyen RN 03/05/24 13:09: st cath as per protocol , urine output for 450 ml yellow clear urine , Flomax was ordered by Original Note: bladder scanned for 569ml, not able to urinate Dr Crockett was notified
--- NOTE | 2024-03-05 12:41 | P.PNIM_ITS ---
Subjective Subjective Date of Service: 03/05/24 Interval History: Confused but appear to be baseline, no new issues Physical Exam 2 Vital Signs: Vital Signs: Last Vital Signs Temp 97.7 F 03/05/24 11:12 Pulse 55 03/05/24 11:12 Resp 18 03/05/24 11:12 BP 105/65 03/05/24 11:12 Pulse Ox 94 03/05/24 11:12 O2 Del Method Room Air 03/05/24 11:12 BMI result Body Mass Index 25.3 .Gen: in no acute distres HEENT: sclera anicteric, edentulous, moist mucus membranes Neck: supple Lungs: clear bilaterally Heart: irregular, slow around 60, no murmurs Abd: soft, non-tender, non-distended Ext: RLE swelling Skin: erythema of RLE from knee down without any purulence, skin breakdown on buttocks Neuro: alert and oriented to self/place, moving all extremities Psych: appropriate affect Objective Data Active Medications Acetaminophen (Acetaminophen 325 Mg Tablet) 650 mg PO Q6H PRN PRN Reason: Pain, Mild (Pain Scale 1-3), fever or headache Apixaban (Apixaban 5 Mg Tablet) 5 mg PO BID [facility] Last Admin: 03/05/24 08:54 Dose: 5 mg Documented By: ANDREY Doxycycline Monohydrate (Doxycycline Monohydrate 100 Mg Capsule) 100 mg PO Q12H [facility] Last Admin: 03/05/24 11:51 Dose: 100 mg Documented By: CHHAYA Ceftriaxone Sodium 1 gm/ (Sodium Chloride) 50 mls @ 100 mls/hr IV Q24H [facility] Last Infusion: 03/05/24 12:24 Dose: Infused Documented By: CHHAYA Magnesium Hydroxide (Milk Of Magnesia 30 Ml Oral.Susp) 30 ml PO DAILY PRN PRN Reason: Constipation Melatonin (Melatonin 3 Mg Tablet) 6 mg PO BEDTIME PRN PRN Reason: Insomnia Ondansetron HCl (Ondansetron Hcl 4 Mg/2 Ml Vial) 4 mg IVPUSH Q8H PRN PRN Reason: Nausea and Vomiting Polyethylene Glycol (Polyethylene Glycol 3350 17 Gm Powd.Pack) 17 gm PO DAILY PRN PRN Reason: Constipation Last Admin: 03/02/24 22:59 Dose: 17 gm Documented By: GHISLAINE Sodium Chloride (0.9 % Sodium Chloride Flush 3 Ml Syringe) 3 ml IVFLUSH QSHIFT [facility] Last Admin: 03/05/24 08:54 Dose: 3 ml Documented By: ANDREY Tamsulosin HCl (Tamsulosin Hcl 0.4 Mg Capsule) 0.4 mg PO DAILY [facility] Labs 03/05/24 06:07 03/04/24 06:14 Labs: Laboratory Results - last 24 hr 03/05/24 06:07 MCV 90.0 MCH 29.4 MCHC 32.6 RDW 15.5 Plt Count 213 MPV 9.4 Absolute Nucleated RBC 0.000 Nucleated RBC % (auto) 0.0 Assessment and Plan (1) APURVA (acute kidney injury): Status: Acute Plan 89yo M with CKD, AF on apixaban, HTN, HLD, PVD, and lymphedema with recent admission to [facility] for cellulitis. Came in via EMS due to repeated falls with estimated time on the ground of 4-5 hr; found to have severe sepsis from cellulitis, APURVA, hyperK, rhabdomyolysis, and melena. severe sepsis due to RLE cellulitis - vanco + ceftriaxone 03/02-, vanco dc/d on 03/04, po doxy added ;14follow BCx, no DVT on Duplex US -wbc 21 down to 8 hyperK - resolved; hold PO KCl supplementation that pt was on at home APURVA - prerenal; resolved with IV bicarbonate and holding diuretics [on torsemide at home]; Nephrology following mild rhabdomyolysis - resolved with IV bicarbonate as above; troponin + LFT elevations due to rhabdomyolysis melena, FOBT+ stool - holding Eliquis, H+H stable, IV PPI, GI consulted, check h/h sacral wounds, ulcer of legs, toe--see wound care pics - Wound care recommendation AF - not on any rate control agents; restart eliquis and monitor h/h high volume urineary retention--add flomax, straight cath or hinojosa, uro consult VTE ppx - SCDs, eliquis dispo - will certainly require STR In my clinical judgment, the patient requires continued inpatient hospitalization for the following reasons: IV ABX Total time managing care of this patient today: 45 minutes. Quality Stroke Does the patient have a stroke diagnosis?: No VTE Prior VTE?: No VTE Risk Level:: Medical - moderate - high VTE Device Contraindication: N/A - Device Ordered VTE Drug Contraindication: Treatment Not Indicated
[2024-03-05] MEDS: Tamsulosin HCL 0.4 MG CAPSULE PO (13:02)
--- NOTE | 2024-03-05 15:53 | MHC.CM.PN ---
Second IMM 03/05/24 left bedside for family, along with copies of HCP, added to chart as well. Pt to DC to [facility] on 03/06/24. Family want him to be in or near [place], plan is to transfer him to [facility], [place], [facility] when bed is available, next week.
[2024-03-06 03:12] VITALS: BP 106/62; PULSE 53; RESP 20; TEMP 36.7; O2SAT 96
[2024-03-06 07:27] VITALS: BP 120/66; PULSE 62; RESP 18; TEMP 36.6
[2024-03-06] MEDS: 0.9 % Sodium Chloride Flush 3 ML SYRINGE IVFLUSH (08:58)
[2024-03-06] MEDS: Tamsulosin HCL 0.4 MG CAPSULE PO (08:58)
[2024-03-06] MEDS: Apixaban 5 MG TABLET PO (08:58)
--- NOTE | 2024-03-06 10:00 | MHC.CLN ---
F/U PT WITH INCREASED NUTRITION RISK R/T PRESSURE INJURIES PT ON REGULAR DIET PO REMAINS 75-100% PT RECEIVING ENSURE TID TO PROMOTE WOUND HEALING SUPPLEMENT TO PROVIDE 1050KCALS, 60G PROTEIN CONTINUE TO MONITOR PO INTAKE AND ENCOURAGE SUPPLEMENTS
[2024-03-06 11:23] VITALS: BP 108/63; PULSE 63; RESP 18; TEMP 36.9; O2SAT 97
[2024-03-06] MEDS: Doxycycline Monohydrate 100 MG CAPSULE PO (11:58)
--- NOTE | 2024-03-06 12:23 | PC.NURSE ---
bladder scanned for 495 ml , pt is not urinating on his own since Hinojosa cath was removed , Dr Crockett ordered hinojosa cath insertion
--- NOTE | 2024-03-06 13:49 | P.DS_ITS ---
DS: Providers Provider Date of Service: 03/06/24 Date of admission: 03/01/24 09:20 Date of discharge: 03/06/24 Primary care physician: Terrence Snider MD Consults: 03/01/24 09:00 Consult to Gastroenterology Routine Consulting Provider: Janet Greer Reason for consultation: melena FOBT+ on Eliquis Consult to Nephrology Routine Consulting Provider: [facility] Reason for consultation: hyperK 03/01/24 09:35 Consult to Wound Care Routine Reason for consultation: pressure injury buttocks 03/05/24 12:41 Consult to Urology Routine Consulting Provider: [facility] Reason for consultation: urinary retention DS: Diagnosis Discharge Diagnosis (1) APURVA (acute kidney injury): Status: Acute DS: Summary Hospital Course Hospital Course: Chief Complaint: found down 89yo M who lives alone but whose daughter checks on him every day and has a history of CKD [SCr 1.2 01/01/24], chronic AF for which he takes apixaban, HTN, HLD, PVD, and lymphedema. He was recently admitted to [facility] in early December for cellulitis. He was brought in overnight by ambulance at the request of his daughter due to her having found him down on the ground after falling for the past 2 days. Yesterday, he was probably on the ground for about 4-5 hours. He has had worsening swelling and redness of the right leg below the knee. No fever or anorexia. No chest pain, dyspnea, or abdominal pain. He is alert and oriented and denies any concerns, but is hard of hearing. In the ED, he was found to have severe sepsis with WBC of 25.5, RR 26, and lactate 2.7. He also had APURVA with SCr 2.88 and hyperK with level of 6.5. CPK was 2029. He had a large melanotic stool that tested positive for guaiac. He was given IV insulin, bicarbonate, NS, vancomycin, and pantoprazole. Currently SCr is 2.4 and K 5.0. EKG showed AF with iLBBB, QRS 116 ms. Hinojosa placed with return of 950 mL urine. Hospital course 89yo M with CKD, AF on apixaban, HTN, HLD, PVD, and lymphedema with recent admission to [facility] for cellulitis. Came in via EMS due to repeated falls with estimated time on the ground of 4-5 hr; found to have severe sepsis from cellulitis, APURVA, hyperK, rhabdomyolysis, and melena. severe sepsis due to RLE cellulitis--Initially treated with Vancomycin and Ceftriaone as follow - vanco + ceftriaxone 03/02-. PO Doxycyline added on 02/19. Cultures have been negative. US of the legs show no DVT. Initial WBC of 21 has come down to 8. Will with Doxycline for 5 more days. hyperKalemia--resolved, hold po potassium supplement APURVA - prerenal likely from Torsemide being given for lymphadema, no known history of chf. APURVA resolved with IV bicarbonate and holding diuretics [on torsemide at home]. Creatine has trended down from 2.88 to 1.12 Was followed by Nephrology mild rhabdomyolysis - resolved with IV bicarbonate as above; troponin + LFT elevations due to rhabdomyolysis Elevated troponin likely due to type 2 mi from rhabdomylosis and sepsis, no chest pain, troponin trended down with treatment of underlying sepsis and rhabdomylosis melena, FOBT+ stool-- Eliquis was on hold, was seen by GI with no recommendation for interventionb. He did not require transfusion. H/H has been stable. sacral wounds, ulcer of legs, toe, arms --wound care recomends 1. Turn and Reposition every 2 hours and as needed for patient comfort.? Use pillows or wedges to support off loading positions. 2. Off Load all bony prominences with use of pillows and heel boots if needed.? Apply Preventative foams where needed. ? 3. Monitor for incontinence and moisture control, use barrier creams when needed for prevention and treatment. 4. Provide adequate and supplemental nutrition.? 5. Order low air loss mattress. 6. When applicable maintain blood glucose levels per Providers order. 7. Bilateral Heels and Right Ankle - Elevate off bed surface with pillows. Cleanse with NS moist gauze, cover with Durafiber AG and foam dressing. Change every 3 days and PRN. 8. Bilateral Lower Legs - Elevate off bed surface with pillows. Cleanse with Micheal spray and wipe clean, Apply Durafiber AG to open wound beds cover with ABD pads and gauze wrap. Change every 3 days and PRN 9. Sacrum - Off Load Pressure? - Cleanse with PH balance spray or wipes, pat dry. ?Apply thin layer of Triad to wound bed. Do not remove all of paste between applications as this may cause further skin damage.? Cover with foam dressing to aid in off loading and protection from friction. Change every other day and PRN. AF - not on any rate control agents; restarted on eliquis and H/H is stable. intermitted marie, occasional into 30s 40s with quick resolution, no sinus pause, and mostly in 50 and 60s. high volume urineary retention--add flomax, straight cath or hinojosa, uro eval on outpatient basis, hinojosa would further help with decub ulcers Time Attestation Discharge Coordination Time (in mins): 45 Quality: Safe Use of Opioids Does Pt have an Active Cancer Diagnosis on the Problem List?: No Quality: Stroke Does the patient have a stroke diagnosis?: No Physical Exam Vital Signs: Vital Signs: Last Vital Signs Temp 98.5 F 03/06/24 11:23 Pulse 63 03/06/24 11:23 Resp 18 03/06/24 11:23 BP 108/63 03/06/24 11:23 Pulse Ox 97 03/06/24 11:23 O2 Del Method Room Air 03/06/24 11:23 BMI result Body Mass Index 25.3 Discharge Plan Discharge Anticipated Discharge Date/Time: 03/06/24 13:53 Patient Disposition: Xfer SNF Discharge Diagnosis: Sepsis due to skin infection, cellulitis, apurva, Referrals: [facility] [Outside] - 1 Week Terrence Snider MD [Primary Care Provider] - 1 Week Discharge Medications: New polyethylene glycol 3350 17 gram Powder In Packet 17 g PO DAILY PRN (Reason: Constipation) Qty: 30 0RF magnesium hydroxide [Milk of Magnesia] 400 mg/5 mL Suspension 30 ml PO DAILY PRN (Reason: Constipation) Qty: 30 0RF tamsulosin 0.4 mg Capsule 0.4 mg PO DAILY Qty: 30 0RF doxycycline monohydrate 100 mg Capsule 100 mg PO Q12H Qty: 10 0RF finasteride [Proscar] 5 mg tablet 5 mg PO DAILY Qty: 30 0RF Continued Eliquis 5 mg tablet 5 mg PO BID Discontinued torsemide 20 mg tablet 20 mg PO BID potassium chloride 20 mEq tablet extended release 40 meq PO DAILY Discharge Orders: Discharge Order (Routine); Ordered 03/06/24 Ordered By: Theron Crockett Diet: Advance to usual diet Activity on Discharge: As tolerated Stand Alone Forms: Patient Portal Discharge page Print Language: Vietnamese Care Plan Goals: recovery from fall, sepsis, cellulitis, anemia and renal failure Health Concerns: 1. Turn and Reposition every 2 hours and as needed for patient comfort.? Use pillows or wedges to support off loading positions. 2. Off Load all bony prominences with use of pillows and heel boots if needed.? Apply Preventative foams where needed. ? 3. Monitor for incontinence and moisture control, use barrier creams when needed for prevention and treatment. 4. Provide adequate and supplemental nutrition.? 5. Order low air loss mattress. 6. When applicable maintain blood glucose levels per Providers order. 7. Bilateral Heels and Right Ankle - Elevate off bed surface with pillows. Cleanse with NS moist gauze, cover with Durafiber AG and foam dressing. Change every 3 days and PRN. 8. Bilateral Lower Legs - Elevate off bed surface with pillows. Cleanse with Micheal spray and wipe clean, Apply Durafiber AG to open wound beds cover with ABD pads and gauze wrap. Change every 3 days and PRN 9. Sacrum - Off Load Pressure? - Cleanse with PH balance spray or wipes, pat dry. ?Apply thin layer of Triad to wound bed. Do not remove all of paste between applications as this may cause further skin damage.? Cover with foam dressing to aid in off loading and protection from friction. Change every other day and PRN. Plan of Treatment: to finish course of antibiotics with Doxycycline, wound care as above to follow up with urology on outpatient basi for voiding trial in 1 week Assessment: see above
--- NOTE | 2024-03-06 14:19 | PC.NURSE ---
hinojosa cath 16 fr placed for urinary retention , initial output 400 ml clear yellow urine
[2024-03-06 16:00] VITALS: BP 123/64; PULSE 58; RESP 18; TEMP 36.9; O2SAT 95
--- NOTE | 2024-03-16 13:54 | P.CDIM_ITS ---
PROVIDER RESPONSE TEXT: To clarify, the appropriate diagnosis supported by the clinical indicators: Traumatic wound, left heel DTI, right heel pressure ulcer stage 3, right heel DTI, all present on adm ission QUERY TEXT: PHYSICIAN'S DOCUMENTATION REQUEST Date of Query: 03/13/2024 07:02 AM EDT Patient Name: Pradeep Villa Admit Date: 03/01/2024 Dear Theron Crockett MD, A review of the medical record indicates additional documentation may be needed. Please review below and update the documentation accordingly. Clinical Indicators: Per Discharge Summary 03/06/24: Bilateral Heels and Right Ankle - Elevate off bed surface with pillows. Cleanse with NS moist gauze, cover with Durafiber AG and foam dressing. Per wound note 03/03/24: Left heel : Deep Tissue Injury POA Right Ankle - Stage 3 Pressure Injury POA Right Heel - Deep Tissue Injury POA Based on the above, could you please provide further information regarding the location and type of u lcers/wounds: Diabetic ulcer Pressure (decubitus) ulcer left heel DTI, right heel pressure ulcer stage 3, right heel DTI all prese nt on admission Traumatic wound, left heel DTI, right heel pressure ulcer stage 3, right heel DTI, all present on adm ission Other (explain) Clinically unable to determine (explain) Thank you, Inna Olivia RN Use of terms such as suspected, likely, concern for, or probable (associated with a specific diagnosi s that is being evaluated, monitored, or treated as if it exists) are acceptable and can be coded in the inpatient se tting, when documented at the time of discharge. Please use your independent medical judgment in providing your response. THIS QUERY IS PART OF THE PERMANENT MEDICAL RECORD
== END 2024-03-06 18:22 | disposition skilled nursing facility (03) | DRG 871 ==
LOC: HO.ED 03-01 02:59 → HO.EDOVER 03-01 09:31 → HO.IMC 03-01 13:08
PROVIDERS: Admitting Provider Family Medicine; Emergency Provider Emergency Medicine; PCP Internal Medicine; Visit Provider Internal Medicine
DX: A41.9 Sepsis, unspecified organism (principal); L89.613 Pressure ulcer of right heel, stage 3; N17.0 Acute kidney failure with tubular necrosis; L03.115 Cellulitis of right lower limb; M62.82 Rhabdomyolysis; I48.20 Chronic atrial fibrillation, unspecified; K92.1 Melena; I73.9 Peripheral vascular disease, unspecified; L89.626 Pressure-induced deep tissue damage of left heel; L89.152 Pressure ulcer of sacral region, stage 2; Z66 Do not resuscitate; R65.20 Severe sepsis without septic shock; N18.30 Chronic kidney disease, stage 3 unspecified; I12.9 Hypertensive chronic kidney disease with stage 1 through stage 4 chronic kidney disease, or unspecified chronic kidney disease; Z79.01 Long term (current) use of anticoagulants
CPT/HCPCS: 36415; 70450; 71045; 80048; 80051; 80053; 80202; 81001; 82248; 82272; 82550; 82565; 82947; 83605; 83735; 84132; 84484; 85025; 85027; 85610; 85730; 87040; 87640; 87641; 93005; 93970; 97162; 97530; 99285; C1758; J0613; J0696; J2470; J3370

== ENCOUNTER → 2024-02-29 23:14 | Outpatient (BNV) | payer MEDICARE, OTHER, SELFPAY | PROVIDERS: Admitting Provider Family Medicine; Emergency Provider Emergency Medicine; PCP Internal Medicine; Visit Provider Internal Medicine Cardiovascular Disease | DX: I48.91 Unspecified atrial fibrillation (principal) | CPT/HCPCS: 93010 ==

== ENCOUNTER → 2024-03-01 00:26 | Outpatient (BNV) | payer MEDICARE, OTHER, SELFPAY | PROVIDERS: Emergency Provider Emergency Medicine; PCP Internal Medicine; Visit Provider Internal Medicine Nephrology | DX: N17.0 Acute kidney failure with tubular necrosis (principal); N18.30 Chronic kidney disease, stage 3 unspecified | CPT/HCPCS: 99223; 99232; 99499 ==

== ENCOUNTER → 2024-03-01 09:20 | Outpatient (BNV) | payer MEDICARE, OTHER, SELFPAY | PROVIDERS: Admitting Provider Family Medicine; Emergency Provider Emergency Medicine; PCP Internal Medicine; Visit Provider Internal Medicine Gastroenterology | DX: K92.1 Melena (principal) | CPT/HCPCS: 99223 ==

== ENCOUNTER → 2024-03-01 09:20 | Outpatient (BNV) | payer MEDICARE, OTHER, SELFPAY | PROVIDERS: Admitting Provider Family Medicine; Emergency Provider Emergency Medicine; PCP Internal Medicine; Visit Provider Family Medicine | DX: N17.9 Acute kidney failure, unspecified (principal) | CPT/HCPCS: 99223; 99232; 99239 ==